=== PATIENT | female | born 1950 | race Caucasian/White ===

== ENCOUNTER 2020-06-19 17:36 | Inpatient (IN) | payer MEDICARE ==
[~2020-06-19] VITALS: Ht 162.6 cm; Wt 72.1 kg
--- NOTE | 2020-06-19 17:55 | NUR ---
BIB RA 87 FROM HOME, NEIGHBOR CALLED 911 WHEN SHE FAILED TO OPEN THE DOOR FOR HER. PATIENT A/OX3, BREATHING EVEN AND UNLABORED, PATIENT C/O WEAKNESS. NO DISTRESS NOTED. NEEDS ATTENDED.
[2020-06-19 17:57] LABS: BASOPHILS # (AUTO) 0.1 /CMM (0.0-0.2); BASOPHILS % (AUTO) 0.3 % (0.0-2.0); HEMATOCRIT 44 % (33-45); HEMOGLOBIN 14.8 g/dL (11.5-14.8); LYMPHOCYTES # (AUTO) 0.4 /CMM (0.8-4.8); LYMPHOCYTES % (AUTO) 1.4 % (20.0-44.0); MEAN CORPUSCULAR HGB CONC 33 g/dl (31.0-36.0); MEAN CORPUSCULAR VOLUME 85 fL (82-100); MONOCYTES # (AUTO) 0.5 /CMM (0.1-1.30); NEUTROPHILS # (AUTO) 25.3 /CMM (1.8-8.9); NEUTROPHILS % (AUTO) 94.3 % (43.0-81.0); PLATELET COUNT (AUTO) 83 /CMM (150-450); RED BLOOD CELL COUNT(AUTO) 5.23 MIL/uL (4.0-5.2); WHITE BLOOD COUNT (AUTO) 26.8 K/uL (4.3-11.0)
[2020-06-19] MEDS ORDERED: IV NS 0.9% 1,000 ML IV ONE ×2 (18:00→19:00)
[2020-06-19 18:18] LABS: BILIRUBIN,URINE Negative (NEGATIVE); COLOR,URINE YELLOW (YELLOW); LEUKOCYTE ESTERASE ,URINE Negative (NEGATIVE); NITRITE, URINE Negative (NEGATIVE); PROTEIN,URINE Trace mg/dl (NEGATIVE); UGLUCOSE Negative (NEGATIVE)
[2020-06-19] MEDS ORDERED: PIPERACILLIN /TAZOBACTAM 3.375 G in IV D5W 50 ML IV ONE (18:30)
[2020-06-19] MEDS ORDERED: VANCOMYCIN 1 GM in IV D5W 250 ML IV ONE (18:30)
[2020-06-19 18:32] LABS: CALCIUM, SERUM 9.5 mg/dL (8.5-10.1); CARBON DIOXIDE 16 mmol/L (21-32); CHLORIDE 87 mmol/L (98-107); CREATININE 1.6 mg/dL (0.6-1.3); GLUCOSE 95 mg/dL (74-106); POTASSIUM 3.3 mmol/L (3.5-5.1); SODIUM SERUM 125 mmol/L (136-145); UREA NITROGEN, BLOOD 35 mg/dL (7-18)
[2020-06-19 18:45] LABS: B-TYPE NATRIURETIC PEPTIDE 5688 PG/ML (0-125)
[2020-06-19 18:53] LABS: BACTERIA,URINE Few /HPF (None Seen); SQUAMOUS EPITHELIAL CELL,UR Few /HPF (None Seen); URINE AMORPHOUS URATE Few /HPF (None Seen); WBC,URINE 0-2 /HPF (0-3)
[2020-06-19] MEDS ORDERED: ACETAMINOPHEN 325 MG TABLET ONE (18:55)
--- NOTE | 2020-06-19 18:56 | NUR ---
LAB CALLED LACTIC ACID 3.5 MD AWARE.
[2020-06-19] MEDS ORDERED: ACETAMINOPHEN 325 MG TABLET PO ONE (19:00)
[2020-06-19] MEDS ORDERED: IOHEXOL-300 100 ML VIAL IV ONE (19:09)
[2020-06-19] MEDS ORDERED: CT SWABBABLE VALVE TRANS SET 1 EA INFUS.SET MC ONE (19:09)
[2020-06-19] MEDS ORDERED: IV NS 0.9% 250 ML IV ONE (19:09)
[2020-06-19 19:21] LABS: BILIRUBIN,DIRECT 2.5 mg/dL (0.0-0.2); BILIRUBIN,TOTAL 3.8 mg/dL (0.2-1.0); TOTAL PROTEIN, SERUM 6.2 g/dL (6.4-8.2)
--- NOTE | 2020-06-19 19:27 | NUR ---
BROUGHT TO CT
--- NOTE | 2020-06-19 19:27 | NUR ---
YOUSIFID SWABBED, SENT TO LAB.
[2020-06-19 19:28] LABS: BAND % (MANUAL) 15 % (0.0-5.0); LYMPHOCYTES % (MANUAL) 2 % (16-48); METAMYELOCYTES % 1 % (0-0); MONOCYTES % (MANUAL) 4 % (0-11.0); NEUTROPHILS % (MANUAL) 78 (42-76)
[2020-06-19 20:18] LABS: THYROID STIMULATING HORMONE 1.554 uIU/mL (0.358-3.74)
--- NOTE | 2020-06-19 21:00 | NUR ---
CHELI NAVARRO TALKING TO DR. CARDOSO REGARDING PT ADMISSION.
--- NOTE | 2020-06-19 21:06 | NUR ---
TELE BED 322-0
[2020-06-19] MEDS ORDERED: Z GUARD REMEDY 2 OZ OINT TP PRN (21:30)
[2020-06-19] MEDS ORDERED: ACETAMINOPHEN 325 MG TABLET PO PRN (21:30)
[2020-06-19] MEDS ORDERED: MAG HYDROX/AL HYDROX/SIMETH 30 ML UDC PO PRN (21:30)
[2020-06-19] MEDS ORDERED: ONDANSETRON HCL/PF 4 MG/2 ML VIAL IVP PRN (21:30)
[2020-06-19] MEDS ORDERED: ZOLPIDEM TARTRATE 5 MG TABLET PO PRN (21:30)
[2020-06-19] MEDS ORDERED: MAGNESIUM HYDROXIDE 30 ML UDC PO PRN (21:30)
[2020-06-19] MEDS ORDERED: HYDROCODONE/APAP 5/325MG TABLET PO PRN (21:30)
--- NOTE | 2020-06-19 21:35 | NUR ---
REPORT GIVEN TO ARNOLD SOTELO FOR SUELLEN
[2020-06-19 21:45] VITALS: BP 101/58
[2020-06-19 21:45] LABS: BILIRUBIN,DIRECT 2.2 mg/dL (0.0-0.2); BILIRUBIN,TOTAL 3.4 mg/dL (0.2-1.0)
--- NOTE | 2020-06-19 21:51 | NUR ---
PT TRANSFERED PER ACLS PROTOCOL
[2020-06-19] MEDS ORDERED: POTASSIUM CHLORIDE 10 MEQ TABLET.SA PO ONE (23:30)
[2020-06-19] MEDS ORDERED: PIPERACILLIN /TAZOBACTAM 3.375 G VIAL IV ONE (23:46)
[2020-06-20] VITALS: BP 101/48
[2020-06-20] MEDS ORDERED: PIPERACILLIN /TAZOBACTAM 3.375 G in IV D5W 50 ML IV SCH
--- NOTE | 2020-06-20 | NUR ---
TELE/RN OPENING NOTES RECEIVED PATIENT FROM ED RN LEX AT 2200HRS. PATIENT TRANSFERRED FROM ED WITH NO INJURIES SUSTAINED. PATIENT TRANSFERRED TO BED SAFELY. PATIENT IS ALERT AND ORIENTED X 3, WITH EPISODES OF CONFUSION, FORGETFUL, PATIENT IS A POOR HISTORIAN. PATIENT VITAL SIGNS ARE STABLE. PATIENT BREATHING IS EVEN AND UNLABORED. PATIENT IN NO SIGNS OF SOB OR RESPIRATORY DISTRESS NOTED. PATIENT SKIN IS INTACT. PATIENT RIGHT AC 20G INTACT FLUSHING WELL. SAFETY MEASURES ARE IN PLACE, BED IS LOCKED AND PLACED IN THE LOW POSITION, SIDE RAILS X 3, CALL LIGHT IS WITHIN REACH. WILL CONTINUE WITH PATIENT PLAN OF CARE.
[2020-06-20] MEDS: PIPERACILLIN /TAZOBACTAM 3.375 G in IV D5W 50 ML IV SCH ×2 (00:57→06:31)
[2020-06-20] MEDS ORDERED: IV NS 0.9% 1,000 ML IV ONE (01:00)
[2020-06-20 04:00] VITALS: BP 113/59
[2020-06-20 05:51] LABS: BASOPHILS # (AUTO) 0.1 /CMM (0.0-0.2); BASOPHILS % (AUTO) 0.2 % (0.0-2.0); EOSINOPHILS % (AUTO) 1.6 % (0.0-6.0); HEMATOCRIT 39 % (33-45); HEMOGLOBIN 12.8 g/dL (11.5-14.8); LYMPHOCYTES # (AUTO) 0.2 /CMM (0.8-4.8); LYMPHOCYTES % (AUTO) 0.7 % (20.0-44.0); MEAN CORPUSCULAR HGB CONC 33 g/dl (31.0-36.0); MEAN CORPUSCULAR VOLUME 84 fL (82-100); MONOCYTES # (AUTO) 3.7 /CMM (0.1-1.30); MONOCYTES % (AUTO) 10.7 % (2.0-12.0); NEUTROPHILS # (AUTO) 30.3 /CMM (1.8-8.9); NEUTROPHILS % (AUTO) 86.8 % (43.0-81.0); PLATELET COUNT (AUTO) 72 /CMM (150-450); RED BLOOD CELL COUNT(AUTO) 4.65 MIL/uL (4.0-5.2)
[2020-06-20] MEDS ORDERED: PIPERACILLIN /TAZOBACTAM 3.375 G VIAL IV ONE (06:28)
[2020-06-20 06:30] LABS: WHITE BLOOD COUNT (AUTO) 34.9 K/uL (4.3-11.0)
[2020-06-20 06:33] LABS: CALCIUM, SERUM 8.7 mg/dL (8.5-10.1); CREATININE 2.3 mg/dL (0.6-1.3); POTASSIUM 3.4 mmol/L (3.5-5.1)
--- NOTE | 2020-06-20 06:40 | NUR ---
TELE/RN NOTES LAB RESULTS: BLOOD CX: GRAM (+) COCCI CHAINS WBC: 34.9 LYNETTE MD SCHEDULE MAKER NOTIFIED/PAGED AWAITING NEW ORDERS/ CALL BACK.
--- NOTE | 2020-06-20 06:50 | NUR ---
TELE/RN CLOSING NOTES PATIENT IN BED SLEEPING EASY TO AROUSE. PATIENT IS ALERT AND ORIENTED X 2-3, PERIODS OF CONFUSION AND FORGETFUL. PATIENTS BREATHING IS EVEN AND UNLABORED. NO SIGNS ON SOB OR RESPIRATORY NOTED. PATIENT IN NO SIGNS OF DISTRESS. ALL NEEDS HAVE BEEN MET DURING SHIFT. SAFETY MEASURES ARE IN PLACE, BED IS LOCKED AND PLACED IN THE LOW POSITION, CALL LIGHT IS WITHIN REACH. WILL ENDORSE CARE TO DAY SHIFT NURSE.
--- NOTE | 2020-06-20 07:30 | NUR ---
BURGLAR ALARM INSTALLER OPENING NOTE PATIENT RESTING IN BED WITH EYES CLOSED. NO S/S OF RESPIRATORY DISTRESS BREATHING EVEN AND UNLABORED. PATIENT TOLERATING O2 NC 3LPM. NO COMPLAINS OF ANY PAIN/ DISCOMFORT AT THIS TIME. SAFETY PRECAUTIONS IN PLACE: BED IN LOCKED AND LOWEST POSITION, CALL LIGHT WITHIN REACH. SIDE RAILS UP. WILL MONITOR PATIENT CLOSELY.
[2020-06-20 08:00] VITALS: BP 91/56
[2020-06-20 08:54] LABS: BAND % (MANUAL) 5 % (0.0-5.0); LYMPHOCYTES % (MANUAL) 4 % (16-48); MONOCYTES % (MANUAL) 5 % (0-11.0); NEUTROPHILS % (MANUAL) 86 (42-76)
--- NOTE | 2020-06-20 09:00 | NUR ---
MS/RN Medications All medications administered as ordered.
[2020-06-20] MEDS ORDERED: POTASSIUM CHLORIDE 10 MEQ TABLET.SA PO ONE (09:30)
--- NOTE | 2020-06-20 11:00 | NUR ---
MS/RN S/B Dr Ferreira DNP Seen by DNP - continue with gentle hydration and current IVAB (zosyn and vanco). Consults ordered with the followin: -Dr Caldwell -Dr Roberts -Dr Beebe -Dr Kenny. All contacted by DNP.
[2020-06-20] MEDS ORDERED: ZOSYN IVPB 2.25 G in IV D5W 50ml IV SCH (12:00)
--- NOTE | 2020-06-20 12:00 | NUR ---
MS/RN IVAB IVAB administered as ordered, no reaction noted.
--- NOTE | 2020-06-20 13:15 | NUR ---
MS/RN Nephrology Seen by Dr Beebe's SPECIAL EDUCATION ASSOCIATE - labs ordered.
--- NOTE | 2020-06-20 15:07 | NUR ---
SS Consult: SS Consult requested for possible APS report and safe discharge planning. The pt. is a 69-year old female who was BIBRA from home after being found on the floor of her apartment by a neighbor. SW met with pt. bedside. pt. is alert & oriented in all spheres. Pt. appears unkempt, makes appropriate eye contact. Pt. is very weak, with slow low speech and takes breaks in between words. Pt. asked to put her head down various times during conversation due to exhaustion. Pt. The pt. stated that she fell on 06/19/2020 and could not get up. Pt. stated she has become increasingly weak over the last month. Patient stated that she put herself on a very strict diet and lost 50 lbs. over the past 18 weeks and believes it may have been a contributing factor. Patient stated she did not seek medical treatment when she began feeling weak because I could still take care of myself, I was just moving very slowly. Per patient, after being found on the floor by neighbor, Medina Márquez, they called pt.s boyfriend, Samir Garland [phone]. Per patient, she waited a while before calling EMT hoping she would feel better. However, she was unable to walk so they then called EMT and was brought to the hospital. SW discussed case with charge nurse, Sydnee and embedded case manager, Jojo. Per embedded case manager pt. will probably need long term upon discharge and they will work on SNF placement. SW discussed possible SNF placement for long term and continued rehabilitation with the patient. SW explained to pt. that SNF placement would be temporary until pt. is strong enough to go home and be independent with ADLs. However, pt. is hesitant. Pt. stated, I want to go home. My boyfriend and neighbors can come and check up on me. Pt. stated she lives alone at [[address] [address]] has no children or other family that can care for her. SW validated her feelings of sadness due to loss of health/ independence etc. and explained to pt. that she currently requires help with ADLs and SW will continue to collaborate with IDT to ensure safe and appropriate discharge planning. Patient expressed understanding and stated that she will think about it. SW will follow up as needed. Plan: SW will follow up and make APS report for Self Neglect.JAYLEEN will meet with pt. and continue to discuss safe discharge plan with possible SNF placement. JAYLEEN provided pt. with the following Senior resources and pt. accepted them: ABUSE PREVENTION: ELDER ABUSE HOTLINE (05/10) ADULT PROTECTIVE SERVICES HOTLINE LONG-TERM CARE [facility] AREA ON AGING (HOTLINE) ADULT DAY HEALTH CARE CARE CENTERS: Private pay or [facility] funded adult day care [facility] Day [facility] Care [facility] , [facility] , [facility] , [facility] Day Health Care , [facility] Adult Day Health [facility], [place] , [facility] Adult Daycare Center , [place] ONE Generation [place] , [facility] , [place] ALZHEIMERS DISEASE/DEMENTIA: Alzheimers Association Helpline [facility] www.alz.org/[facility] Department of Aging www.lacity.org Family Caregiver [place] www.caregiver.org [place] Caregiver Resources Center/Family Support www.losangelesscrc.org COMMUNITY HEALTH ASSOCIATIONS: AARP www.aarp.org ALS Association (ask for Sandra) www.als.org Bulgarian Diabetes Association www.diabetes.org Bulgarian Heart Association www.heart.org Bulgarian Lung Association www.lungusa.org Bulgarian Parkinson Disease Association www.apdaparkinson.org Bulgarian [place] , www.redcross.org Arthritis Foundation www.arthritis.org Crohns & Colitis Foundation of Bulgarian www.ccfa.org/chapters/chiara National Multiple Sclerosis Society www.nationalmssociety.org Myasthenia Gravis Foundation www.myasthenia-ca.org National Stroke Association www.stroke.org CONSERVATORSHIP & GUARDIANSHIP: AARP Bet Tzedek Legal Services Center for Health Care Rights Eldercare Information and Referral Shaper Hand [facility]: [facility] Referral Service [facility] Legal Services Office of the Public Guardian [place] GRIEF AND BEREAVEMENT RESOURCES: The [place]athering Place , [facility] THE HOPE Connection , [facility] Bereavement Center , [place] HEARING DISORDER RESOURCES: [place] Telephone Access Program Deaf and Disabled Telecommunications Program www.ddtp.cpu.ca.gov HearRx Hearing Centers ([place]) Better Hearing Systems , [place] GLAD ([facility] Agency on Deafness) V/ TTY; Certified Nuclear Medicine Technologist , [facility] Hearing [facility] -low income hearing aid assistance www.Vibrado Technologieshearingfoundation.org [place] [facility] Sabrina HELP AT HOME CAREGIVER SUPPORT: In Home Support Services (Must have Medi-Kristofer to be eligible) *Ask for a list of agencies that provide services to assist with care in the home. Local Senior Centers also have listings of care providers. HOME SAFETY MODIFICATIONS AND EQUIPMENT: Senior centers have additional referrals. [place] Grockit and Actual Experience Investment Dept. Handyworker Program (low income) or Visit http://hcidla.[facility].org/vkd-isogay-kk for more information National Seating and Mobility and/or ; Forever Active www.foreverKitemed.Fyusion Stay Home Safe www.Stayhomesafe.com LIFE ALERT RESPONSE SYSTEM: Tarana Wireless Services 147-128-9563 www. MyPrintCloud Life Alert 294-927-6516 www.IMN Life Station 985-928-4983 www.Wizzgoation.Fyusion Safe Return 608-474-9239 www.alz.or/safereturn Cell Phones for Seniors www.BitLeap MEALS AND FOOD PROGRAMS: [place] Meals on Wheels [phone] [place] Meals on Wheels 922-398-7638 [facility] 778-800-3779 [place] to the Homebound 630-489-6077 [place] to the Homebound [phone] [facility] to the Homebound 732-493-8924 [facility] to the Homebound [phone] Luis Carlos Solorzano [phone] [facility] 475-877-9127 ONE Generation [phone] [facility] [phone] [facility] [phone] Meals on Wheels [phone] For all ages: $6.85/ meal w side. Delivered M-F from 10 am-1pm. Application and payment is done over the phone. Frozen meals available for weekends. Emergency Food [facility] [phone] [facility] Group Work Program Aide [phone] [facility] [phone] Papito James Outreach- Brown bag lunches [phone] [facility] [phone] MEAL/GROCERY DELIVERY PROGRAMS: Amalia Warren Gourmet Meals [phone]- [facility] [phone]- [facility] Magic Kitchen [phone] Moms Meals [phone] (ask Ag for Discount Select grocery stores may provide delivery. MEDICAL INSURANCE SUPPORT SERVICES: Center for Health Care Rights [phone] Health Insurance Counseling/Advocacy Programs (HICAP)-Must have Medicare. Offers counseling for Medi-Kristofer eligibility [phone] [facility] Public Group Work Program Aide 065-830-4469 www.primary children's hospital.ca.gov Medicare 798-360-2313 www.socialsecurity.org Social Security 133-418-8557 SENIOR ACTIVITY PROGRAMS: *Contact a local senior center, adult school, recreation facility or community college for education, fitness, recreation, and social programs. Aquatic Therapy and Adapted Exercise programs through [facility] [phone] [facility]core at [facility] [phone] www.[facility]/encore U- Senior Friends [phone] [place] Senior Programs 371-678-7917 www.oasisnet.org Suddenly 65 www..com SENIOR CENTERS: [facility] [phone] [facility] [phone] [facility] [phone] [facility] [phone] [facility] [phone] [facility] [phone] [facility] [phone] [facility] [phone] One Generation, [facility] [phone] [facility] [phone] [facility] [phone] [facility] [phone] [facility] [phone] TRANSPORTATION: Local [facility] may have applications for transportation programs and additional resources. ACCESS Services [phone] Transportation for seniors and disabled persons 7 days a week requiring 254 hr. advance reservation. Must apply and register for program katie eligible. Black[employer] Power [phone] or [phone] Transportation for seniors and persons with ADA card/metro disabled card in the [facility]. M-F only. Must register for services. ONE GENERATION [phone] Serves 65 years + in conjunction with Virtway program. Must be registered with both programs. A to B Transport [phone] Provides wheelchair/gurney van service. Adult Medical Transport [phone] Accepts Medi-kristofer with prior authorization. Care Van [phone] Provides wheelchair Transport. [facility] Wide Transportation [phone] Provides gurney service [facility] [phone] Gurney Transport. [facility] Transportation [phone] wheelchair & gurney transport [facility] Transportation [phone] wheelchair & gurney transport [place] Non-Emergency Transport [phone] wheelchair & gurney transport [facility] Living [place] [phone] Short Term Transportation primarily for adults with disabilities on social security income. Nominal fee may apply and a reservation is required. [facility] Cab [phone] or [phone] [place] ProgrammerMeetDesigner.com [phone] [place] [address] Referral Services -[phone] For additional programs & services
[2020-06-20 16:03] VITALS: BP 96/58
--- NOTE | 2020-06-20 16:05 | NUR ---
APS Report SW completed online APS report Intake #[id number] for Self-Neglect. SW printed APS report confirmation email and placed it in the patient's chart. SW will be available as needed.
[2020-06-20] MEDS ORDERED: CEFEPIME 1 GM in IV D5W 50 ML IV SCH (16:30)
[2020-06-20] MEDS: CEFEPIME 2 GM in IV D5W 100 ML IV SCH ×2 (17:13→17:21)
--- NOTE | 2020-06-20 18:26 | NUR ---
MS/RN Santamaria insertion Santamaria catheter inserted at the order of Dr Ferreira as patient has not voided this shift. Bladder scanner shows residual of <150ml. 16G santamaria inserted, urine collected and sent to lab for sodium clearance.
--- NOTE | 2020-06-20 18:40 | NUR ---
MS/RN End note Bernal catheter draining small volume of cloudy concentrated urine. Patient noted with redness to left elbow and redness on chantel area, pictures taken and wound care consult ordered. Skin kept clean and dry, z-guard applied to chantel area, elbows placed on pillows. Will endorse to hotel night auditor.
--- NOTE | 2020-06-20 19:07 | NUR ---
TELE/RN CLOSING NOTES PATIENT IN BED SLEEPING EASY TO AROUSE. PATIENT IS ALERT AND ORIENTED X 2-3. PATIENT TOLERATING O2 NC 3LPM. NO SIGNS ON SOB OR RESPIRATORY NOTED. PATIENT IN NO SIGNS OF DISTRESS. ALL NEEDS ATTENDED DURING SHIFT. ALL SCHEDULED MEDS GIVEN. SAFETY MEASURES ARE IN PLACE, BED IS LOCKED AND PLACED IN THE LOW POSITION, CALL LIGHT IS WITHIN REACH. PICTURES TAKEN. WILL ENDORSE CARE TO CONSERVATION ENFORCEMENT OFFICER NURSE.
--- NOTE | 2020-06-20 19:30 | NUR ---
MS/RN OPENING NOTES RECEIVED PATIENT IN BED RESTING. PATIENT IS ALERT AND ORIENTED X 2-3. PATIENTS BREATHING IS EVEN AND UNLABORED. NO SIGNS ON SOB OR RESPIRATORY NOTED PT ON 2 L NC. PATIENT IN NO SIGNS OF DISTRESS. WATSON CATH IS IN PLACE. SAFETY MEASURES ARE IN PLACE, BED IS LOCKED AND PLACED IN THE LOW POSITION, SIDE RAILS UP X 3, CALL LIGHT IS WITHIN REACH. WILL CONTINUE WITH PATIENT PLAN OF CARE.
[2020-06-20] MEDS: VANCOMYCIN 500 MG in IV D5W 100 ML IV SCH (19:58)
[2020-06-20 20:53] VITALS: BP 110/65
--- NOTE | 2020-06-21 06:19 | NUR ---
MS/RN CLOSING NOTES PATIENT IN BED SLEEPING EASY TO AROUSE. PATIENT IS ALERT AND ORIENTED X 2-3. PATIENTS BREATHING IS EVEN AND UNLABORED. NO SIGNS ON SOB OR RESPIRATORY NOTED PT ON 2 L NC. PATIENT IN NO SIGNS OF DISTRESS. WATSON CATH IS IN PLACE DRAINED 55cc URINE. PATIENT R AC IV INTACT RUNNING NS AT 75 cc/ HR. ALL NEEDS MET. SAFETY MEASURES ARE IN PLACE, BED IS LOCKED AND PLACED IN THE LOW POSITION, SIDE RAILS UP X 3, CALL LIGHT IS WITHIN REACH. WILL ENDORSE TO DAY SHIFT NURSE.
[2020-06-21 06:30] LABS: BASOPHILS # (AUTO) 0.2 /CMM (0.0-0.2); BASOPHILS % (AUTO) 0.5 % (0.0-2.0); EOSINOPHILS % (AUTO) 0.5 % (0.0-6.0); HEMATOCRIT 36 % (33-45); LYMPHOCYTES # (AUTO) 0.8 /CMM (0.8-4.8); LYMPHOCYTES % (AUTO) 1.9 % (20.0-44.0); MEAN CORPUSCULAR HGB CONC 33 g/dl (31.0-36.0); MEAN CORPUSCULAR VOLUME 83 fL (82-100); NEUTROPHILS # (AUTO) 34.6 /CMM (1.8-8.9); NEUTROPHILS % (AUTO) 77.1 % (43.0-81.0); PLATELET COUNT (AUTO) 116 /CMM (150-450); RED BLOOD CELL COUNT(AUTO) 4.38 MIL/uL (4.0-5.2)
[2020-06-21 06:46] LABS: WHITE BLOOD COUNT (AUTO) 44.9 K/uL (4.3-11.0)
[2020-06-21 06:53] LABS: CALCIUM, SERUM 8.7 mg/dL (8.5-10.1); CREATININE 3.5 mg/dL (0.6-1.3); MAGNESIUM 2.2 mg/dL (1.8-2.4); PHOSPHORUS 3.6 mg/dL (2.5-4.9); POTASSIUM 3.7 mmol/L (3.5-5.1); TOTAL PROTEIN, SERUM 5.7 g/dL (6.4-8.2)
--- NOTE | 2020-06-21 06:54 | NUR ---
LAB RESULT MS/RN NOTES WBC: 44.9 WILL ENDORSE TO DAY SHIFT NURSE.
[2020-06-21 07:01] LABS: THYROID STIMULATING HORMONE 0.64 uIU/mL (0.358-3.74); URIC ACID 7.5 mg/dL (2.6-7.2)
[2020-06-21 07:04] LABS: ALBUMIN 1.4 g/dL (3.4-5.0)
[2020-06-21 08:00] VITALS: BP 113/67
--- NOTE | 2020-06-21 08:00 | NUR ---
RN OPENING NOTE PATIENT AWAKE IN BED. A/O X3 AND KOSOVAN SPEAKING. NO COMPLAINT OF PAIN OR NAUSEA. CURRENTLY ON 3L NC WITH NO SOB OR RESPIRATORY DISTRESS PRESENT. NO EDEMA. SOME DISTENSION PRESENT ON ABDOMEN. REDNESS PRESENT ON SACRAL AREA AND LATERAL THIGH. F/C PRESENT. HL PRESENT ON R AC 20G. SAFETY MEASURES IN PLACE. SIDE RAILS RAISED. BED LOWERED. CALL LIGHT WITHIN REACH. WILL CONTINUE TO MONITOR.
[2020-06-21 09:06] LABS: LYMPHOCYTES % (MANUAL) 3 % (16-48); MONOCYTES % (MANUAL) 18 % (0-11.0); NEUTROPHILS % (MANUAL) 79 (42-76)
--- NOTE | 2020-06-21 10:02 | NUR ---
WOUND CARE CONSULT: PT PRESENTS WITH BLANCHABLE REDNESS TO RT ELBOW AND INTACT DEEP TISSUE INJURY TO LEFT LATERAL THIGH, PRESENT ON ADMISSION. PT TO BE PLACED ON LONNY ISOFLEX LOW AIRLOSS BED. RECOMMENDATIONS MADE FOR SKIN PROTECTION. DISCUSSED WITH NURSING STAFF. IN AGREEMENT WITH PLAN OF CARE. Addendum: 06/21/20 at 1004 by PATTI JARRETT WNDNU Amended: Links added.
[2020-06-21 12:46] LABS: ABG BASE EXCESS -6.6 mmol/L; ABG OXYGEN SATURATION 96.2 % (92.0-98.5); ABG PCO2 26.5 mmHg (35.0-45.0); ABG PH 7.412 (7.350-7.450); ABG PO2 79.8 mmHg (75.0-100.0); AaDO2 117.4 mmHg; COHb 0.3 % (0.5-1.5); MetHb 0.2 % (0.0-1.5); O2Hb 95.7 % (94.0-97.0); SITE, ABG Right Radial; VENT MODE, BG 3L NC
[2020-06-21] MEDS: AZITHROMYCIN 250 MG TABLET PO SCH (13:11)
[2020-06-21] MEDS: METRONIDAZOLE 500MG/ NS 100ML 500 MG in PREMIX 1 EA IV SCH ×2 (13:59→21:30)
--- NOTE | 2020-06-21 15:05 | NUR ---
Extrusion Line Operator note: Extrusion Line Operator followed up to discuss options for discharge with the patient. Patient is a 69-year-old, white female who was brought into the hospital for sepsis. SW met the patient in her hospital room, on the med-surg unit. Patient is alert and oriented x4. SW discussed options with the patient and asked if she would like to go to a SNF. Patient stated she does not want to go to a SNF. Patient stated "my boyfriend will be moving in and taking care of me." Patient stated her boyfriend is Samir Garland [phone]. Patient stated she plans to return to prior living arrangements at home ([address], [place] [address]; [phone]). SW will continue to remain available to the patient, as needed to ensure a safe discharge.
[2020-06-21 16:00] VITALS: BP 110/74
[2020-06-21] MEDS: CEFEPIME 2 GM in IV D5W 100 ML IV SCH (16:12)
--- NOTE | 2020-06-21 18:04 | NUR ---
RN CLOSING NOTE PATIENT AWAKE IN BED. A/O X3 AND MALTESE SPEAKING. NO COMPLAINT OF PAIN OR NAUSEA. CURRENTLY ON 3L NC WITH NO SOB OR RESPIRATORY DISTRESS PRESENT. NO EDEMA. SOME DISTENSION PRESENT ON ABDOMEN. REDNESS PRESENT ON SACRAL AREA AND LATERAL THIGH. F/C PRESENT. HL PRESENT ON R AC 20G. ROUTINE MEDS GIVEN. SAFETY MEASURES IN PLACE. SIDE RAILS RAISED. BED LOWERED. CALL LIGHT WITHIN REACH. REPORT TO BE GIVEN TO NIGHT NURSE FOR SUELLEN.
[2020-06-21] MEDS: IV NS 0.9% 1,000 ML IV PRN (19:42)
[2020-06-21 20:00] VITALS: BP 125/76
[2020-06-21] MEDS: VANCOMYCIN 500 MG in IV D5W 100 ML IV SCH (20:22)
--- NOTE | 2020-06-21 20:42 | NUR ---
RN NOTES RECEIVED PATIENT IN BED, ALERT AND ORIENTED X2, ROOM AIR, NOT IN APPARENT PAIN, TEARFUL, ANXIOUS, VERBALIZING "I WANT TO BE ALONE." WATSON CATHETER DRAINING, RIGHT ARM WITH PERIPHERAL IV HAS REDNESS, STARTED NEW IV LINE. REPOSITIONED FOR COMFORT.
[2020-06-22] MEDS: METRONIDAZOLE 500MG/ NS 100ML 500 MG in PREMIX 1 EA IV SCH ×3 (05:06→21:03)
[2020-06-22 05:07] LABS: PTH, INTACT 50 pg/mL (15-65)
--- NOTE | 2020-06-22 06:24 | NUR ---
RN NOTES ALERT/ORIENTED X3, ROOM AIR, TEARFUL, ANXIOUS, PAIN DURING REPOSITIONING, WATSON CATHETER FOR STRICT I&O, ELEVATED BUN/CREATININE, DECREASED URINE OUTPUT, NS AT 100 ML/HR, WBC TRENDING UP, ONCOLOGY CONSULT, CONTINUE IV ABX
[2020-06-22 06:54] LABS: BASOPHILS # (AUTO) 0.2 /CMM (0.0-0.2); BASOPHILS % (AUTO) 0.6 % (0.0-2.0); EOSINOPHILS % (AUTO) 0.3 % (0.0-6.0); HEMATOCRIT 33 % (33-45); HEMOGLOBIN 10.9 g/dL (11.5-14.8); LYMPHOCYTES # (AUTO) 0.9 /CMM (0.8-4.8); LYMPHOCYTES % (AUTO) 2.6 % (20.0-44.0); MEAN CORPUSCULAR HGB CONC 33 g/dl (31.0-36.0); MEAN CORPUSCULAR VOLUME 83 fL (82-100); NEUTROPHILS # (AUTO) 30.8 /CMM (1.8-8.9); NEUTROPHILS % (AUTO) 90.5 % (43.0-81.0); PLATELET COUNT (AUTO) 143 /CMM (150-450); RED BLOOD CELL COUNT(AUTO) 3.94 MIL/uL (4.0-5.2)
[2020-06-22 07:19] LABS: CALCIUM, SERUM 7.8 mg/dL (8.5-10.1); CREATININE 4.5 mg/dL (0.6-1.3); POTASSIUM 3.9 mmol/L (3.5-5.1)
--- NOTE | 2020-06-22 07:30 | NUR ---
RN MS NOTES PT IN BED, AWAKE, ALERT AND VERBALLY RESPONSIVE, NO COMPLAINT OF PAIN, BREATHING PATTERN NORMAL, CALL LIGHT WITHIN REACH, IV FLUIDS INFUSING WELL, ASSISTED WITH BREAKFAST, KEPT COMFORTABLE.
[2020-06-22 08:00] VITALS: BP 142/90
[2020-06-22 08:49] LABS: LYMPHOCYTES % (MANUAL) 2 % (16-48); MONOCYTES % (MANUAL) 6 % (0-11.0); NEUTROPHILS % (MANUAL) 92 (42-76)
--- NOTE | 2020-06-22 09:18 | NUR ---
RN MS NOTES PT IN BED, AWAKE, ALERT AND ORIENTED, ASSISTED WITH BREAKFAST, SEEN AND EXAMINED BY DR. VASQUEZ, INFORMED OF ABNORMAL LABS.
[2020-06-22] MEDS ORDERED: FUROSEMIDE 40 MG/4 ML VIAL IV ONE (11:00)
[2020-06-22 11:32] LABS: ABG BASE EXCESS -8.1 mmol/L; ABG OXYGEN SATURATION 95.5 % (92.0-98.5); ABG PCO2 25.4 mmHg (35.0-45.0); ABG PH 7.394 (7.350-7.450); ABG PO2 74.4 mmHg (75.0-100.0); AaDO2 44.9 mmHg; COHb 0.6 % (0.5-1.5); MetHb 0.1 % (0.0-1.5); O2Hb 94.8 % (94.0-97.0); SITE, ABG Right Radial; VENT MODE, BG ROOM AIR
[2020-06-22] MEDS: AZITHROMYCIN 250 MG TABLET PO SCH (12:34)
[2020-06-22] MEDS ORDERED: DIATR MEGLU/DIATRIZOATE SODIUM 30 ML BOTTLE (GASTROGRAPHIN) ONE (13:52)
[2020-06-22 16:07] VITALS: BP 152/96
[2020-06-22] MEDS: CEFEPIME 1 GM in IV D5W 50 ML IV SCH (17:17)
[2020-06-22] MEDS: IV NS 0.9% 1,000 ML IV PRN (17:18)
--- NOTE | 2020-06-22 18:44 | NUR ---
RN MS NOTES PT IN BED, ASLEEP, EASY TO AROUSE, ALERT AND ORIENTED, NO COMPLAINT OF PAIN, RESPIRATIONS NORMAL, PT WITH DECREASED URINE OUTPUT, DR. CAMPBELL AWARE, PT COMPLETED CT SCAN OF ABD AND PELVIS WITH ORAL CONTRAST, ASSISTED WITH DINNER, IV FLUIDS INFUSING WELL, PM CARE PROVIDED, PT REFUSES TO BE REPOSITIONED AT TIMES, KEPT WARM AND COMFORTABLE IN BED.
--- NOTE | 2020-06-22 19:30 | NUR ---
MS RN OPENING NOTE PATIENT A/OX2; ABLE TO MAKE NEEDS KNOWN. ON ROOM AIR AND TOLERATING WELL WITH NO SOB. DENIES PAIN OR DISCOMFORT AT THIS TIME. F/C DRAINING YELLOW URINE; PATENT AND INTACT. LFA #22G INFUSING NS @40ML/HR; PATENT AND INTACT. SAFETY MEASURES IN PLACE: BED IN LOWEST LOCKED POSITION, SIDE RAILS UPZ X2, CALL LIGHT WITHIN EASY REACH, BED ALARMS ON. PATIENT IS IN STABLE CONDITION; WILL CONTINUE PLAN OF CARE.
[2020-06-22 20:00] VITALS: BP 150/109
[2020-06-23] MEDS: METRONIDAZOLE 500MG/ NS 100ML 500 MG in PREMIX 1 EA IV SCH ×3 (05:11→21:49)
--- NOTE | 2020-06-23 05:42 | NUR ---
MS RN CLOSING NOTE PATIENT A/OX2; ABLE TO MAKE NEEDS KNOWN. ON ROOM AIR AND TOLERATING WELL WITH NO SOB. DENIES PAIN OR DISCOMFORT AT THIS TIME. F/C DRAINING YELLOW URINE; PATENT AND INTACT. LFA #22G INFUSING NS @40ML/HR; PATENT AND INTACT. SAFETY MEASURES IN PLACE: BED IN LOWEST LOCKED POSITION, SIDE RAILS UP X2, CALL LIGHT WITHIN EASY REACH, BED ALARMS ON. PATIENT IS IN STABLE CONDITION; WILL ENDORSE PLAN OF CARE TO ONCOMING MORNING RN.
[2020-06-23 06:34] LABS: BASOPHILS % (AUTO) 0.1 % (0.0-2.0); EOSINOPHILS % (AUTO) 0.3 % (0.0-6.0); HEMATOCRIT 34 % (33-45); HEMOGLOBIN 11.1 g/dL (11.5-14.8); LYMPHOCYTES # (AUTO) 0.3 /CMM (0.8-4.8); LYMPHOCYTES % (AUTO) 1.3 % (20.0-44.0); MEAN CORPUSCULAR HGB CONC 33 g/dl (31.0-36.0); MEAN CORPUSCULAR VOLUME 84 fL (82-100); MONOCYTES % (AUTO) 4.4 % (2.0-12.0); NEUTROPHILS # (AUTO) 20.2 /CMM (1.8-8.9); NEUTROPHILS % (AUTO) 93.9 % (43.0-81.0); PLATELET COUNT (AUTO) 129 /CMM (150-450); RED BLOOD CELL COUNT(AUTO) 4.05 MIL/uL (4.0-5.2); WHITE BLOOD COUNT (AUTO) 21.6 K/uL (4.3-11.0)
[2020-06-23 07:31] LABS: BILIRUBIN,TOTAL 1.2 mg/dL (0.2-1.0); CALCIUM, SERUM 8.1 mg/dL (8.5-10.1); CREATININE 5.1 mg/dL (0.6-1.3); MAGNESIUM 2.5 mg/dL (1.8-2.4); PHOSPHORUS 5.7 mg/dL (2.5-4.9); POTASSIUM 3.9 mmol/L (3.5-5.1)
--- NOTE | 2020-06-23 07:34 | NUR ---
MS RN NOTES PATIENT RECEIVED IN BED RESTING COMFORTABLY. ALERT AND ORIENTED X 2-3. ON ROOM AIR WITH NO SIGN OF RESPIRATORY DISTRESS AT THIS TIME WITH EVEN NON-LABORED BREATHING, AND NO SOB NOTED. PATIENT SKIN WARM AND DRY TO TOUCH. IV ACCESS INTACT AND PATENT. PATIENT DENIES ANY PAIN AT THIS TIME. SAFETY PRECAUTIONS IMPLEMENTED WITH BED LOCKED, BED ALARM ON, BILATERAL SIDE RAILS UP, BED IN THE LOWEST POSITION AND CALL LIGHT WITHIN EASY. WILL CONTINUE TO MONITOR PATIENT.
[2020-06-23 08:00] VITALS: BP 149/85
[2020-06-23] MEDS ORDERED: VANCOMYCIN 500 MG in IV D5W 100 ML IV SCH (08:00)
[2020-06-23 08:06] LABS: COMPLEMENT C3, SERUM 89 mg/dL (82-167); COMPLEMENT C4, SERUM 17 mg/dL (12-38)
[2020-06-23 08:46] LABS: ALBUMIN 1.3 g/dL (3.4-5.0)
[2020-06-23] MEDS: METOCLOPRAMIDE HCL 10 MG/10 ML UDC PO SCH ×3 (08:46→16:19)
[2020-06-23 10:20] VITALS: BP 155/91
--- NOTE | 2020-06-23 10:20 | NUR ---
TRANSFER PATIENT TO [facility] ROOM 116 PATIENT TRANSFERRED VIA ACLS PROTOCOL. REPORT GIVEN TO JENARO SOTELO. PATIENT ALERT AND ORIENTED, ON ROOM AIR NO RESPIRATORY DISTRESS NOTED. ANXIOUS AT THIS TIME DUE TO POSSIBLY STARTING DIALYSIS. PROVIDED COMFORT AND REASSURANCE TO PATIENT, INFORMED BOTH DR. CAMPBELL AND DR. HOWARD PATIENT WOULD LIKE SOME TIME TO THINK ABOUT STARTING HEMODIALYSIS. PATIENT DENIES PAIN AND CALL LIGHT AT BEDSIDE.
[2020-06-23] MEDS: VANCOMYCIN 500 MG in IV D5W 100 ML IV SCH (12:09)
[2020-06-23 13:00] VITALS: BP 161/90
[2020-06-23] MEDS: AZITHROMYCIN 250 MG TABLET PO SCH (14:17)
[2020-06-23] MEDS: CEFEPIME 1 GM in IV D5W 50 ML IV SCH (16:19)
[2020-06-23 17:00] VITALS: BP 134/85
[2020-06-23 19:02] LABS: CALCIUM, SERUM 7.5 mg/dL (8.5-10.1); CREATININE 5.3 mg/dL (0.6-1.3)
[2020-06-23] MEDS: IV NS 0.9% 1,000 ML IV PRN (19:29)
--- NOTE | 2020-06-23 19:30 | NUR ---
RN OPENING NOTES RECEIVED PATIENT IN BED, A/O X4. PT ON ROOM AIR, PT TOLERATING WELL. O2 SATURATION 100% NO S/S OF RESP DISTRESS OR SOB. BREATHING IS EVEN AND UNLABORED AT THIS TIME. PT IS ON TELE MONITORING, WITH NSR HEART RATE IS 90, PT BASELINE. PT HAS IV LEFT FOREARM #20, RUNNING WITH IV FLUIDS 0.9% NS ORDERED AT 40ML/HR. NO S/S OF INFILTRATION NOTED. PT HAS WATSON CATH DRAINING VIA GRAVITY. PT IS ANXIOUS ABOUT CARE, INFORMED PT REGARDING PLAN OF CARE. PT VERBALIZED UNDERSTANDING. ALL NEEDS ATTENDED. SAFETY MEASURES IN PLACE. HOB ELEVATED. SIDE RAILS UP X2. BED IS LOCKED IS LOWEST POSITION WITH BED ALARM ON. PT UNABLE TO USE CALL LIGHT. WILL CONTINUE TO MONITOR FOR CHANGES IN PT CONDITION MAKING FREQUENT ROUNDS, TURN AND REPOSITION Q2H.
--- NOTE | 2020-06-23 19:30 | NUR ---
PATIENT RECEIVED FROM [facility]. VITAL SIGNS TAKEN. SAFETY PRECAUTIONS IMPLEMENTED, BED LOCKED IN LOWEST POSITION, SIDE RAILS UP X2, CALL LIGHT WITHIN REACH. PATIENT CONFUSED AND UNSURE ABOUT STARTING DIALYSIS. WILL ENDORSE CONTINUATION OF CARE TO UPCOMING SHIFT.
[2020-06-23 20:00] VITALS: BP 141/88
--- NOTE | 2020-06-23 20:11 | NUR ---
RN NOTE PT IS VERBALIZING SHE WANTS TO GO THROUGH WITH DIALYSIS, ASKING WHEN IT WILL BE. CALLED DR KAUR'S OFFICE, LEFT MESSAGE WITH SHILOH TO CATHIE NAVARRO REGARDING POSSIBLE CONSENT NEEDED.
[2020-06-24] VITALS: BP 124/76
--- NOTE | 2020-06-24 01:06 | NUR ---
RN NOTE PT NOTED TO BE SLEEPING UPON ROUNDS, NO DISTRESS NOTED. WILL CONTINUE TO MONITOR FOR CHANGE IN CONDITION AND ASSESS NEEDS.
[2020-06-24 04:00] VITALS: BP 132/80
--- NOTE | 2020-06-24 04:09 | NUR ---
RN NOTE BED BATH DONE, PT REQUESTS COLD COMPRESS ON HEAD. DONE. PT ANXIOUS ABOUT WANTING TO GO HOME. EDUCATED PT ON IMPORTANCE ON HOSPITALIZATION. DISCUSSION WITH NEPHRO REGARDING HD TO BE DONE TOMORROW. ALL NEEDS ATTENDED AT THIS TIME
[2020-06-24] MEDS: METRONIDAZOLE 500MG/ NS 100ML 500 MG in PREMIX 1 EA IV SCH ×3 (05:05→21:22)
[2020-06-24 06:16] LABS: BILIRUBIN,TOTAL 1.2 mg/dL (0.2-1.0); CALCIUM, SERUM 7.6 mg/dL (8.5-10.1); CREATININE 5.5 mg/dL (0.6-1.3); MAGNESIUM 2.5 mg/dL (1.8-2.4); POTASSIUM 4.1 mmol/L (3.5-5.1); TOTAL PROTEIN, SERUM 5.9 g/dL (6.4-8.2)
[2020-06-24 06:28] LABS: ALBUMIN 1.3 g/dL (3.4-5.0)
[2020-06-24 06:41] LABS: BASOPHILS # (AUTO) 0.1 /CMM (0.0-0.2); BASOPHILS % (AUTO) 0.4 % (0.0-2.0); EOSINOPHILS % (AUTO) 0.3 % (0.0-6.0); HEMATOCRIT 34 % (33-45); HEMOGLOBIN 11.3 g/dL (11.5-14.8); LYMPHOCYTES # (AUTO) 0.6 /CMM (0.8-4.8); LYMPHOCYTES % (AUTO) 3.8 % (20.0-44.0); MEAN CORPUSCULAR HGB CONC 33 g/dl (31.0-36.0); MEAN CORPUSCULAR VOLUME 83 fL (82-100); MONOCYTES # (AUTO) 0.9 /CMM (0.1-1.30); MONOCYTES % (AUTO) 5.8 % (2.0-12.0); NEUTROPHILS # (AUTO) 14.5 /CMM (1.8-8.9); NEUTROPHILS % (AUTO) 89.7 % (43.0-81.0); PLATELET COUNT (AUTO) 147 /CMM (150-450); RED BLOOD CELL COUNT(AUTO) 4.11 MIL/uL (4.0-5.2); WHITE BLOOD COUNT (AUTO) 16.2 K/uL (4.3-11.0)
--- NOTE | 2020-06-24 06:50 | NUR ---
RN CLOSING NOTES PT REMAINS IN BED, NO SIGNIFICANT CHANGE IN CONDITION OVER NIGHT. PT STILL REMAINS ON ROOM AIR NO S/S OF RESP DISTRESS OR SOB. PT BREATHING IS EVEN AND UNLABORED. PT STILL ON TELE MONITORING PRESENTS WITH NSR WITH HEART RATE OF 86. PT BED BATH DONE, WEAKNESS NOTED ON RIGHT LEG, PT VERBALIZED THAT IS THE SIDE SHE FELL ON. PT AFEBRILE, PT DENIES PAIN. ALL NEEDS ATTENDED. SAFETY MEASURES IN PLACE. HOB ELEVATED. SIDE RAILS UP X2 BED LOCKED IN LOWEST POSITION WITH BED ALARM ON. WILL ENDORSE TO ONCOMING SHIFT FOR CONTINUATION OF CARE.
--- NOTE | 2020-06-24 07:05 | NUR ---
RN NOTES RECEIVED PT ON BED , A/Ox3, ON RA, NO SOB NOTED, ON TELE SR HR IN 80'S , WATSON DRAINING TO GRAVITY, NS AT 40CC/HR RUNNING , R WRIST IV SITE CLEAN, DRY AND INTACT, SR UP x3, CALL LIGHT WITHIN EASY REACH, BED LOCKED AND IN LOWEST POSITION, CONTINUE TO MONITOR .
[2020-06-24 08:00] VITALS: BP 134/80
[2020-06-24 08:06] LABS: *SPE A/G RATIO 0.5 (0.7-1.7); *SPE ALBUMIN 1.6 g/dL (2.9-4.4); *SPE ALPHA-1-GLOBULIN 0.5 g/dL (0.0-0.4); *SPE BETA GLOBULIN 0.8 g/dL (0.7-1.3); *SPE GLOBULIN, TOTAL 3.3 g/dL (2.2-3.9); *SPE M-SPIKE Not Observed g/dL (Not Observed); *SPEGAMMA GLOBULIN 0.9 g/dL (0.4-1.8)
[2020-06-24 08:06] LABS: CANCER AG, 125 58.1 U/mL (0.0-38.1)
[2020-06-24] MEDS: METOCLOPRAMIDE HCL 10 MG/10 ML UDC PO SCH ×3 (08:31→16:19)
[2020-06-24 09:07] LABS: BAND % (MANUAL) 1 % (0.0-5.0); LYMPHOCYTES % (MANUAL) 3 % (16-48); MONOCYTES % (MANUAL) 5 % (0-11.0); NEUTROPHILS % (MANUAL) 91 (42-76)
[2020-06-24] MEDS: ESCITALOPRAM OXALATE (10 MG) 10 MG TABLET PO SCH (10:33)
[2020-06-24 12:00] VITALS: BP 145/89
--- NOTE | 2020-06-24 12:00 | NUR ---
RN NOTES PT STABLE, CONTINUE TO MONITOR .
[2020-06-24] MEDS: AZITHROMYCIN 250 MG TABLET PO SCH (12:14)
[2020-06-24 16:00] VITALS: BP 136/81
[2020-06-24] MEDS: CEFEPIME 1 GM in IV D5W 50 ML IV SCH (16:19)
--- NOTE | 2020-06-24 18:27 | NUR ---
RN NOTES NO SIGNIFICANT CHANGES NOTED ON THIS SHIFT , WILL ENDORSE TO PAINT LINE SUPERVISOR NURSE FOR CONTINUITY OF CARE .
--- NOTE | 2020-06-24 19:25 | NUR ---
RN NOTE RECEIVED PT AWAKE AND ALERT/ORIENTED X 3 WITH HEAD OF BED ELEVATED. ON ROOM AIR, RESPIRATIONS UNLABORED. NSR ON THE DIVIDER OPERATOR. WITH RIGHT WRIST IV PATENT WITH NS @ 40CC/HOUR RUNNING ORDERED. DENIES PAIN OR DISCOMFORT, PLAN OF CARE DISCUSSED, CALL LIGHT WITHIN REACH, SAFETY MEASURES IN PLACE PER PROTOCOL, BED ALARM ON, BED LOCKED AND IN LOW POSITIONED, SIDE RAILS UP X 2,
[2020-06-24 20:00] VITALS: BP 119/79
--- NOTE | 2020-06-24 21:56 | NUR ---
RN NOTE RECEIVED CALL FROM DR. SAVANAH MAGANA. MD WILL COME TONIGHT TO PLACE HD CATHETER.
[2020-06-24] MEDS ORDERED: HEPARIN SODIUM, PORCINE 1000 UNIT/1 ML VIAL IV STA ×2 (22:08→22:17)
[2020-06-24] MEDS ORDERED: HEPARIN SODIUM, PORCINE 5000 UNITS/1 ML VIAL ONE (22:44)
--- NOTE | 2020-06-24 23:13 | NUR ---
RN NOTE S/P PLACEMENT OF RIGHT INTERNAL JUGULAR HD CATHETER BY DR. SAVANAH MAGANA. PT TOLERATED WELL. STAY CHEST X RAY ORDERED.
[2020-06-24] MEDS: VANCOMYCIN 500 MG in IV D5W 100 ML IV SCH (23:59)
[2020-06-25] VITALS: BP 119/81
--- NOTE | 2020-06-25 | NUR ---
RN NOTE VANCO TROUGH 22. VANCOMYCIN 500MG IV NOT ADMINISTERED. CALLED AND NOTIFIED [facility].
[2020-06-25] MEDS: IV NS 0.9% 1,000 ML IV PRN (00:09)
[2020-06-25 04:00] VITALS: BP 120/74
[2020-06-25] MEDS: METRONIDAZOLE 500MG/ NS 100ML 500 MG in PREMIX 1 EA IV SCH ×3 (05:04→21:58)
[2020-06-25 06:23] LABS: BASOPHILS % (AUTO) 0.2 % (0.0-2.0); HEMATOCRIT 33 % (33-45); HEMOGLOBIN 10.9 g/dL (11.5-14.8); LYMPHOCYTES # (AUTO) 0.6 /CMM (0.8-4.8); MEAN CORPUSCULAR HGB CONC 33 g/dl (31.0-36.0); MEAN CORPUSCULAR VOLUME 83 fL (82-100); MONOCYTES # (AUTO) 1.1 /CMM (0.1-1.30); MONOCYTES % (AUTO) 5.5 % (2.0-12.0); NEUTROPHILS # (AUTO) 17.1 /CMM (1.8-8.9); NEUTROPHILS % (AUTO) 89.3 % (43.0-81.0); PLATELET COUNT (AUTO) 177 /CMM (150-450); RED BLOOD CELL COUNT(AUTO) 3.97 MIL/uL (4.0-5.2); WHITE BLOOD COUNT (AUTO) 19.1 K/uL (4.3-11.0)
[2020-06-25 06:32] LABS: CALCIUM, SERUM 7.4 mg/dL (8.5-10.1); CREATININE 5.9 mg/dL (0.6-1.3); POTASSIUM 3.7 mmol/L (3.5-5.1)
--- NOTE | 2020-06-25 06:48 | NUR ---
RN NOTE NO ACUTE CHANGES OBSERVED OVERNIGHT. PT IS SLEEPING IN BED WITH HEAD OF BED ELEVATED, EASILY AROUSABLE VIA EXTERNAL STMULI, ON ROOM AIR, RESPIRATIONS UNLABORED. NO SIGNS OF PAIN OR DISCOMFORT, NSR ON THE CIRCULAR KNITTER. WITH RIGHT WRIST IV PATENT WITH NS @ 40CC/HOUR RUNNING ORDERED, RIGHT INTERNAL JUGULAR HD CATHETER INTACT, WATSON CATHETER PATENT AND IN PLACE DRAINING URINE VIA GRAVITY, CALL LIGHT WITHIN REACH, SAFETY MEASURES IN PLACE PER PROTOCOL, BED ALARM ON, BED LOCKED AND IN LOW POSITIONED, SIDE RAILS UP X 2, WILL ENDORSE TO MORNING RN FOR SUELLEN.
--- NOTE | 2020-06-25 06:51 | NUR ---
RN NOTE RECEIVED ALERT FOR CRITICAL LAB VALUES CO2 10. BUN 141. BUN TRENDING HIGHER. AWARE. PT PENDING HEMODIALYSIS PER NEPHROLOGY TODAY. WILL ENDORSE TO MORNING RN .
--- NOTE | 2020-06-25 07:05 | NUR ---
RN NOTES RECEIVED PT ON BED , A/Ox3-4, ON RA, NO SOB NOTED, ON TELE SR-ST HR IN 90'S , WATSON DRAINING TO GRAVITY, NS AT 40CC/HR RUNNING , R WRIST IV SITE AND R IJ HD CATH , CLEAN, DRY AND INTACT, SR UP x3, CALL LIGHT WITHIN EASY REACH, BED LOCKED AND IN LOWEST POSITION, CONTINUE TO MONITOR .
[2020-06-25 07:06] LABS: *ANA ANTI-CENTROMERE B AB <0.2 AI (0.0-0.9); *ANA ANTI-DNA(DS) AB, QN <1 IU/mL (0-9); *ANA ANTI-JO-1 <0.2 AI (0.0-0.9); *ANA ANTICHROMATIN ANTIBODY <0.2 AI (0.0-0.9); *ANA RNP ANTIBODIES 0.2 AI (0.0-0.9); *ANA SJOGREN'S ANTI-SS-A <0.2 AI (0.0-0.9); *ANA SJOGREN'S ANTI-SS-B <0.2 AI (0.0-0.9); *ANAANTI-SCLERODERMA-70 AB <0.2 AI (0.0-0.9); *ANASMITH AB <0.2 AI (0.0-0.9)
[2020-06-25 08:00] VITALS: BP 117/76
[2020-06-25] MEDS: ESCITALOPRAM OXALATE (10 MG) 10 MG TABLET PO SCH (08:34)
[2020-06-25] MEDS: METOCLOPRAMIDE HCL 10 MG/10 ML UDC PO SCH ×3 (08:34→16:28)
[2020-06-25 09:09] LABS: BAND % (MANUAL) 3 % (0.0-5.0); EOSINOPHILS % (MANUAL) 1 % (0-4); LYMPHOCYTES % (MANUAL) 5 % (16-48); MONOCYTES % (MANUAL) 7 % (0-11.0); NEUTROPHILS % (MANUAL) 84 (42-76)
[2020-06-25] MEDS ORDERED: VANCOMYCIN 500 MG in IV D5W 100 ML IV PRN (11:30)
[2020-06-25 12:00] VITALS: BP 113/71
[2020-06-25] MEDS ORDERED: ALBUMIN 25% 25 GM in PREMIX 1 EA IV STA (14:17)
[2020-06-25] MEDS: CEFTRIAXONE 1 G in IV D5W 50 ML IV SCH (14:52)
[2020-06-25 16:00] VITALS: BP 110/62
--- NOTE | 2020-06-25 17:00 | NUR ---
RN NOTES PT RECEIVED HD , NO OUTPUT PER HD NURSE , VSS STABLE CONTINUE TO MONITOR .
--- NOTE | 2020-06-25 18:25 | NUR ---
RN NOTES PT STATED WANTS TO SLEEP , REFUSED TO EAT DINNER , VSS STABLE, NO SIGNIFICANT CHANGES NOTED ON THIS SHIFT , WILL ENDORSE TO CHEF INSTRUCTOR NURSE FOR CONTINUITY OF CARE .
[2020-06-25 20:00] VITALS: BP 111/73
--- NOTE | 2020-06-25 20:44 | NUR ---
RN NOTES, ENDORSED PATIENT TO EZEKIEL RN FOR CONTINUATION OF CARE, PATIENT IN STABLE CONDITION, NO SOB/ACUTE DISTRESS NOTED.
--- NOTE | 2020-06-25 21:16 | NUR ---
GUANAKO/RN ASSUMED CARE FOR CONTINUITY OF CARE, PATIENT WAS IN BED, APPEAR SLEEPING, APPEAR COMFORTABLE, BREATHING EVEN AND UNLABORED, CALL LIGHT IN REACH, WILL MONITOR.
[2020-06-25 23:23] LABS: CALCIUM, SERUM 7.8 mg/dL (8.5-10.1); CREATININE 4.7 mg/dL (0.6-1.3)
[2020-06-26 00:33] VITALS: BP 126/76
--- NOTE | 2020-06-26 01:08 | NUR ---
GUANAKO/RN BMP DONE AT 2300, K=3.0, NOTIFIED CATALINA HUNG, RECEIVED ORDER OF KCL 60 MEQ IV. UPPER LEATHER SORTERASHLEIGH ZULETA VERIFIED WITH CATALINA HUNG, THE KCL 60 MEQ, CATALINA HUNG, CONFIRMED THE ORDER.
[2020-06-26] MEDS ORDERED: POTASSIUM CHLORIDE 10 MEQ/50 ML PREMIXED IVPB FOR PERIPHERAL LINE IV SCH (01:30)
--- NOTE | 2020-06-26 01:40 | NUR ---
GUANAKO/RN KCL 60 MEQ IV WAS DISCONTINUED BY CATALINA HUNG, THE PATIENT IS A DIALYSIS PATIENT. WILL DEFER TO NEON MOLDER IN A.M.
[2020-06-26] MEDS: IV NS 0.9% 1,000 ML IV PRN (03:22)
[2020-06-26 04:00] VITALS: BP 124/68
[2020-06-26] MEDS: METRONIDAZOLE 500MG/ NS 100ML 500 MG in PREMIX 1 EA IV SCH ×3 (05:48→21:49)
--- NOTE | 2020-06-26 05:55 | NUR ---
GUANAKO/RN PATIENT IS AWAKE, ALERT, COMFORTABLE, NOTED TO HAVE LOOSE, BIG BM, CLEANSED, GOOD SKIN CARE DONE, TOTAL LINEN CHANGE WAS DONE, F/C CARE WAS DONE, REPOSITIONED TO COMFORT. ALL NEEDS ATTENDED AT THIS TIME, WILL CONTINUE TO MONITOR.
[2020-06-26 06:41] LABS: BASOPHILS % (AUTO) 0.2 % (0.0-2.0); EOSINOPHILS % (AUTO) 0.4 % (0.0-6.0); HEMATOCRIT 28 % (33-45); HEMOGLOBIN 9.6 g/dL (11.5-14.8); LYMPHOCYTES # (AUTO) 0.6 /CMM (0.8-4.8); LYMPHOCYTES % (AUTO) 3.2 % (20.0-44.0); MEAN CORPUSCULAR HGB CONC 34 g/dl (31.0-36.0); MEAN CORPUSCULAR VOLUME 84 fL (82-100); MONOCYTES # (AUTO) 0.9 /CMM (0.1-1.30); NEUTROPHILS # (AUTO) 17.1 /CMM (1.8-8.9); NEUTROPHILS % (AUTO) 91.2 % (43.0-81.0); PLATELET COUNT (AUTO) 190 /CMM (150-450); RED BLOOD CELL COUNT(AUTO) 3.39 MIL/uL (4.0-5.2); WHITE BLOOD COUNT (AUTO) 18.8 K/uL (4.3-11.0)
[2020-06-26 07:26] LABS: CALCIUM, SERUM 7.6 mg/dL (8.5-10.1); CREATININE 4.9 mg/dL (0.6-1.3); MAGNESIUM 2.6 mg/dL (1.8-2.4); PHOSPHORUS 7.7 mg/dL (2.5-4.9)
--- NOTE | 2020-06-26 07:50 | NUR ---
RN OPENING NOTE PATIENT IS CURRENTLY IN BED WITH HOB AT SEMI FOWLERS POSITION. CURRENTLY ON ROOM AIR WITH NO SIGNS OF LABORED BREATHING. PATIENT IS AOX3. WATSON CATHETER IS IN PLACE. DTI AND SACRAL WOUNDS ARE NOTED. IV ACCESS IS PATENT, AND INTACT. BED IS LOCKED IN THE LOWEST POSITION, 3 GUARD RAILS RAISED, AND ALL HOSPITAL SAFETY PRECAUTIONS ARE BEING FOLLOWED. WILL CONTINUE TO MONITOR THROUGHOUT SHIFT.
[2020-06-26 08:00] VITALS: BP 114/75
[2020-06-26 08:06] LABS: IMMUNOGLOBULIN A, SERUM 327 mg/dL (87-352); IMMUNOGLOBULIN G, SERUM 1449 mg/dL (586-1602); IMMUNOGLOBULIN M, SERUM 138 mg/dL (26-217)
[2020-06-26] MEDS: ESCITALOPRAM OXALATE (10 MG) 10 MG TABLET PO SCH (08:36)
[2020-06-26] MEDS: METOCLOPRAMIDE HCL 10 MG/10 ML UDC PO SCH ×3 (08:36→16:16)
[2020-06-26 11:54] LABS: BAND % (MANUAL) 7 % (0.0-5.0); EOSINOPHILS % (MANUAL) 1 % (0-4); LYMPHOCYTES % (MANUAL) 4 % (16-48); MONOCYTES % (MANUAL) 4 % (0-11.0); MYELOCYTES % 3 % (0-0); NEUTROPHILS % (MANUAL) 81 (42-76)
[2020-06-26] MEDS: CEFTRIAXONE 1 G in IV D5W 50 ML IV SCH (13:00)
[2020-06-26 16:00] VITALS: BP 118/76
--- NOTE | 2020-06-26 16:53 | NUR ---
RN NOTE URINALYSIS COLLECTED. AWAITING LAB SHEARING MACHINE TENDER.
[2020-06-26 17:31] LABS: BILIRUBIN,URINE NEGATIVE (NEGATIVE); COLOR,URINE YELLOW (YELLOW); LEUKOCYTE ESTERASE ,URINE TRACE (NEGATIVE); NITRITE, URINE NEGATIVE (NEGATIVE); PROTEIN,URINE 100 mg/dl (NEGATIVE); UGLUCOSE NEGATIVE (NEGATIVE); UROBILINOGEN,URINE 0.2 EU/dL (0.2)
[2020-06-26 17:42] LABS: BACTERIA,URINE Few /HPF (None Seen)
[2020-06-26 17:43] LABS: URINE AMORPHOUS URATE Few /HPF (None Seen)
[2020-06-26 18:06] LABS: EOSINOPHIL,URINE None Seen
[2020-06-26 18:24] LABS: URINE TOTAL PROTEIN 204.1 mg/dL (0-11.9)
--- NOTE | 2020-06-26 18:49 | NUR ---
RN CLOSING NOTE PATIENT IS CURRENTLY IN BED WITH HOB AT SEMI FOWLERS POSITION. CURRENTLY ON ROOM AIR WITH NO SIGNS OF LABORED BREATHING. PATIENT IS AOX3. WATSON CATHETER IS IN PLACE. DTI AND SACRAL WOUNDS HAD APPROPRIATE WOUND CARE APPLIED. IV ACCESS IS PATENT, AND INTACT. BED IS LOCKED IN THE LOWEST POSITION, 3 GUARD RAILS RAISED, AND ALL HOSPITAL SAFETY PRECAUTIONS ARE BEING FOLLOWED. ALL DUE MEDS GIVEN AND PATIENT REMAINED STABLE THROUGHOUT SHIFT. WILL ENDORSE TO SAXOPHONE PLAYER RN FOR SUELLEN.
[2020-06-26 20:00] VITALS: BP 119/77
[2020-06-26 23:48] LABS: CALCIUM, SERUM 7.7 mg/dL (8.5-10.1); CREATININE 3.9 mg/dL (0.6-1.3); POTASSIUM 3.1 mmol/L (3.5-5.1)
--- NOTE | 2020-06-27 00:08 | NUR ---
report given to TRAV FOR SUELLEN.
[2020-06-27 01:10] VITALS: BP 119/77
[2020-06-27] MEDS: IV NS 0.9% 1,000 ML IV PRN (03:33)
[2020-06-27] MEDS: METRONIDAZOLE 500MG/ NS 100ML 500 MG in PREMIX 1 EA IV SCH ×2 (05:19→13:54)
[2020-06-27 05:33] VITALS: BP 141/88
[2020-06-27 05:51] LABS: BASOPHILS # (AUTO) 0.1 /CMM (0.0-0.2); BASOPHILS % (AUTO) 0.3 % (0.0-2.0); EOSINOPHILS % (AUTO) 0.4 % (0.0-6.0); HEMATOCRIT 28 % (33-45); HEMOGLOBIN 9.5 g/dL (11.5-14.8); LYMPHOCYTES # (AUTO) 0.6 /CMM (0.8-4.8); LYMPHOCYTES % (AUTO) 3.2 % (20.0-44.0); MEAN CORPUSCULAR HGB CONC 34 g/dl (31.0-36.0); MEAN CORPUSCULAR VOLUME 84 fL (82-100); MONOCYTES # (AUTO) 1.1 /CMM (0.1-1.30); MONOCYTES % (AUTO) 5.6 % (2.0-12.0); NEUTROPHILS # (AUTO) 17.7 /CMM (1.8-8.9); NEUTROPHILS % (AUTO) 90.5 % (43.0-81.0); PLATELET COUNT (AUTO) 204 /CMM (150-450); RED BLOOD CELL COUNT(AUTO) 3.38 MIL/uL (4.0-5.2); WHITE BLOOD COUNT (AUTO) 19.5 K/uL (4.3-11.0)
[2020-06-27 06:08] LABS: MAGNESIUM 2.5 mg/dL (1.8-2.4); PHOSPHORUS 6.3 mg/dL (2.5-4.9)
--- NOTE | 2020-06-27 06:53 | NUR ---
RN NOTES PT ALERT AND ORIENTED X3 IN BED NO PAIN OR DISCOMFORT NOTED OR REPORTED AT THIS TIME. PT ON ROOM AIR TOLERATING WELL. HAS IV ACCESS ON THE R WRIST 20 G AND L HAND 20G INTACT PATENT FLUSHING WELL. NO REDNESS OR SWELLING NOTED AT IV SITE. RUNNING NS @ 40 ML/HR. ALL NURSING NEEDS MET.ALL DUE MEDICATIONS GIVEN AND TOLERATED WELL. CALL LIGHT WITHIN REACH. SAFETY PRECAUTIONS FOLLOWED. WILL ENDORSE CARE TO DAY SHIFT NURSE.
--- NOTE | 2020-06-27 07:30 | NUR ---
MS RN OPENING NOTE RECEIVED PATIENT IN BED, RESTING. SEMI FOWLERS POSITION. PATIENT ON ROOM AIR - TOLERATING WELL. NO SIGNS OR PAIN OR RESPIRATORY DISTRESS. WATSON CATHETER IS IN PLACE AND DRAINING TO GRAVITY. IV ACCESS IS PATENT, AND INTACT. BED IS LOCKED AND IN LOWEST POSITION. SIDE RAILS X3. SAFETY PRECAUTIONS IN PLACE. WILL CONTINUE TO MONITOR.
[2020-06-27] MEDS: ESCITALOPRAM OXALATE (10 MG) 10 MG TABLET PO SCH (08:56)
[2020-06-27] MEDS: METOCLOPRAMIDE HCL 10 MG/10 ML UDC PO SCH ×4 (08:56→17:25)
[2020-06-27 10:43] LABS: LYMPHOCYTES % (MANUAL) 2 % (16-48); MONOCYTES % (MANUAL) 5 % (0-11.0); MYELOCYTES % 1 % (0-0); NEUTROPHILS % (MANUAL) 92 (42-76)
[2020-06-27 12:46] VITALS: BP 141/88
[2020-06-27] MEDS: CEFTRIAXONE 1 G in IV D5W 50 ML IV SCH (13:03)
--- NOTE | 2020-06-27 17:10 | NUR ---
MS RN NOTE PATIENT REFUSED METOCLOPRAMIDE. STATES SHE WANTS TO BE LEFT ALONE TO REST
--- NOTE | 2020-06-27 18:38 | NUR ---
MS RN CLOSING NOTE PATIENT IS CURRENTLY LYING IN BED, RESTING. SEMI FOWLERS POSITION. ON ROOM AIR - TOLERATING WELL. NO SIGNS OF RESPIRATORY DISTRESS. PATIENT IS A/O X3. WATSON CATHETER IS IN PLACE AND DRAINING TO GRAVITY. DTI AND SACRAL WOUNDS HAD APPROPRIATE WOUND CARE APPLIED. IV ACCESS IS PATENT, AND INTACT - RUNNING NS @ 40ML/HR. BED IS LOCKED AND IN THE LOWEST POSITION, SIDE RAILS X3. SAFETY PRECAUTIONS IN PLACE. WILL ENDORSE TO BOWLING BALL PATCHER NURSE FOR SUELLEN.
[2020-06-27 20:00] VITALS: BP 133/68
[2020-06-27 23:14] LABS: CREATININE 3.3 mg/dL (0.6-1.3); POTASSIUM 2.9 mmol/L (3.5-5.1)
[2020-06-28 04:00] VITALS: BP 140/85
--- NOTE | 2020-06-28 05:31 | NUR ---
RN notes In bed resting comfortably with no respiratory distress. On O2 at 3L/hr via nasal cannula, tolerating well. Alert and oriented x 4. Noted with severe weakness. No complaint of pain or discomfort, Vital signs wnl. Kept clean and oriented. Will endorse to next shift for continuity of care.
[2020-06-28 06:28] LABS: BASOPHILS % (AUTO) 0.1 % (0.0-2.0); EOSINOPHILS % (AUTO) 0.5 % (0.0-6.0); HEMATOCRIT 28 % (33-45); HEMOGLOBIN 9.1 g/dL (11.5-14.8); LYMPHOCYTES # (AUTO) 0.8 /CMM (0.8-4.8); MEAN CORPUSCULAR HGB CONC 33 g/dl (31.0-36.0); MEAN CORPUSCULAR VOLUME 85 fL (82-100); MONOCYTES # (AUTO) 0.8 /CMM (0.1-1.30); MONOCYTES % (AUTO) 4.2 % (2.0-12.0); NEUTROPHILS # (AUTO) 17.6 /CMM (1.8-8.9); NEUTROPHILS % (AUTO) 91.2 % (43.0-81.0); PLATELET COUNT (AUTO) 249 /CMM (150-450); RED BLOOD CELL COUNT(AUTO) 3.25 MIL/uL (4.0-5.2); WHITE BLOOD COUNT (AUTO) 19.3 K/uL (4.3-11.0)
[2020-06-28 06:57] LABS: MAGNESIUM 2.1 mg/dL (1.8-2.4); PHOSPHORUS 5.5 mg/dL (2.5-4.9)
[2020-06-28] MEDS: IV NS 0.9% 1,000 ML IV PRN (06:58)
--- NOTE | 2020-06-28 07:30 | NUR ---
RN OPENING NOTES PRESENT IN BED, RESTING COMFORTABLY, ON RA, SPO2 100%, NO SOB OR DISTRESS NOTED, WATSON CATHETER IS IN PLACE , INTACT,PATENT, DRAINING YELLOW URINE BY GRAVITY, IV LINE FLUSHED AND INTACT, BED IS LOCKED AND IN LOWEST POSITION. SIDE RAILS X3. SAFETY PRECAUTIONS IN PLACE. WILL CONTINUE TO MONITOR.
[2020-06-28] MEDS: ESCITALOPRAM OXALATE (10 MG) 10 MG TABLET PO SCH (08:50)
[2020-06-28] MEDS: METOCLOPRAMIDE HCL 10 MG/10 ML UDC PO SCH ×3 (08:51→17:46)
[2020-06-28 09:38] LABS: BAND % (MANUAL) 6 % (0.0-5.0); LYMPHOCYTES % (MANUAL) 2 % (16-48); MONOCYTES % (MANUAL) 6 % (0-11.0); NEUTROPHILS % (MANUAL) 86 (42-76)
[2020-06-28] MEDS: CEFTRIAXONE 1 G in IV D5W 50 ML IV SCH (14:21)
[2020-06-28 16:00] VITALS: BP 139/81
--- NOTE | 2020-06-28 18:55 | NUR ---
CLOSING NOTES REMAINS IN BED, STABLE, PROVIDED WITH HYGIENE, MEDS, FLUIDS AND FOOD, NO ACUTE CHANGES DURING SHIFT, WILL ENDORSE TO PM SHIFT RN FOR SUELLEN
--- NOTE | 2020-06-28 19:30 | NUR ---
MS/RN OPENING NOTES RECEIVED PATIENT IN BED RESTING. PATIENT IS ALERT AND ORIENTED X 2. PATIENT BREATHING IS EVEN AND UNLABORED. NO SIGNS OF SOB OR RESPIRATORY DISTRESS NOTED. PATIENT IV ACCESS INTACT FLUSHING WELL. SAFETY MEASURES ARE IN PLACE, BED IS LOCKED AND PLACED IN THE LOWEST POSITION, CALL LIGHT IS WITHIN REACH, WILL CONTINUE WITH PATIENT PLAN OF CARE.
[2020-06-28 23:29] LABS: CALCIUM, SERUM 7.5 mg/dL (8.5-10.1); POTASSIUM 3.1 mmol/L (3.5-5.1)
[2020-06-29 04:00] VITALS: BP 154/86
[2020-06-29 04:57] LABS: OCCULT BLOOD STOOL POSITIVE (NEGATIVE)
[2020-06-29] MEDS: IV NS 0.9% 1,000 ML IV PRN (06:04)
[2020-06-29 06:24] LABS: BASOPHILS % (AUTO) 0.2 % (0.0-2.0); EOSINOPHILS % (AUTO) 0.6 % (0.0-6.0); HEMATOCRIT 28 % (33-45); HEMOGLOBIN 9.1 g/dL (11.5-14.8); LYMPHOCYTES # (AUTO) 0.8 /CMM (0.8-4.8); LYMPHOCYTES % (AUTO) 4.1 % (20.0-44.0); MEAN CORPUSCULAR HGB CONC 33 g/dl (31.0-36.0); MEAN CORPUSCULAR VOLUME 86 fL (82-100); MONOCYTES # (AUTO) 0.8 /CMM (0.1-1.30); MONOCYTES % (AUTO) 4.2 % (2.0-12.0); NEUTROPHILS # (AUTO) 17.3 /CMM (1.8-8.9); NEUTROPHILS % (AUTO) 90.9 % (43.0-81.0); PLATELET COUNT (AUTO) 263 /CMM (150-450); RED BLOOD CELL COUNT(AUTO) 3.24 MIL/uL (4.0-5.2); WHITE BLOOD COUNT (AUTO) 19.1 K/uL (4.3-11.0)
--- NOTE | 2020-06-29 06:35 | NUR ---
MS/RN CLOSING NOTES PATIENT IN BED SLEEPING EASY TO AROUSE . PATIENT IS ALERT AND ORIENTED X 2. PATIENT BREATHING IS EVEN AND UNLABORED. NO SIGNS OF SOB OR RESPIRATORY DISTRESS NOTED. PATIENT IV ACCESS INTACT FLUSHING WELL RUNNING NS AT 40CC/HR. WATSON CATH IS IN PLACED DRAINING CLEAR YELLOW URINE. ALL NEEDS HAVE BEEN MET DURING SHIFT. SAFETY MEASURES ARE IN PLACE, BED IS LOCKED AND PLACED IN THE LOWEST POSITION, CALL LIGHT IS WITHIN REACH, WILL ENDORSE CARE TO DAY SHIFT NURSE.
--- NOTE | 2020-06-29 07:30 | NUR ---
RN OPENING NOTES PATIENT PRESENT IN BED, AWAKE, A/OX3, ON ROOM AIR SPO2 99%, DENIES PAIN, NO SOB OR DISTRESS NOTED, IV LINE PATENT AND INTACT, WATSON CATH IN PLACE, DRAINING YELLOW URINE BY GRAVITY, HOB ELEVATED, CALL LIGHT IN REACH, ROOM CLOSE TO NURSING STATION, WILL CONT TO MONITOR
[2020-06-29 07:52] LABS: MAGNESIUM 2.4 mg/dL (1.8-2.4)
[2020-06-29 08:00] VITALS: BP 163/94
[2020-06-29] MEDS: METOCLOPRAMIDE HCL 10 MG/10 ML UDC PO SCH ×3 (09:25→18:42)
[2020-06-29] MEDS: ESCITALOPRAM OXALATE (10 MG) 10 MG TABLET PO SCH (09:25)
[2020-06-29 13:42] LABS: BAND % (MANUAL) 2 % (0.0-5.0); LYMPHOCYTES % (MANUAL) 7 % (16-48); MONOCYTES % (MANUAL) 5 % (0-11.0); NEUTROPHILS % (MANUAL) 86 (42-76)
[2020-06-29] MEDS: CEFTRIAXONE 1 G in IV D5W 50 ML IV SCH (14:02)
[2020-06-29 16:00] VITALS: BP 139/84
--- NOTE | 2020-06-29 18:59 | NUR ---
RN CLOSING NOTES REMAINS IN BED, STABLE, TOLERATED DIALYSES WELL, HAVE POOR PO INTACE, WATSON OUTPUT 300CC, MEDS GIVEN, COMFORT NEEDS PROVIDED WILL ENDORSE TO PM SHIFT RN FOR SUELLEN
[2020-06-29 20:00] VITALS: BP 133/71
[2020-06-29 23:38] LABS: CALCIUM, SERUM 6.9 mg/dL (8.5-10.1); CREATININE 3.3 mg/dL (0.6-1.3); POTASSIUM 3.1 mmol/L (3.5-5.1)
[2020-06-30 04:00] VITALS: BP 142/62
--- NOTE | 2020-06-30 04:49 | NUR ---
RN notes In bed, resting comfortably with no distress noted. Breathing even and unlabored. On room air, tolerating well. No significant change of condition. Dr. Garza ordered stool culture and c-diff, specimen taken to lab, waiting for result. No complaint of pain or discomfort. Alert and oriented. Able to verbalize needs. Vital signs wnl. On santamaria catheter draining clear yellow urine. Kept clean and dry. Will continue to monitor.
[2020-06-30] MEDS: IV NS 0.9% 1,000 ML IV PRN (06:00)
--- NOTE | 2020-06-30 06:23 | NUR ---
RN notes Stool specimen #1 collected at 01:15 06/30/20. C-diff forem filled up. Specimen and form given to labs. Will endorse to next shift to collect 2 more specimen within 24 hours..
[2020-06-30 06:26] LABS: BASOPHILS # (AUTO) 0.1 /CMM (0.0-0.2); BASOPHILS % (AUTO) 0.3 % (0.0-2.0); EOSINOPHILS % (AUTO) 0.4 % (0.0-6.0); HEMATOCRIT 26 % (33-45); HEMOGLOBIN 8.6 g/dL (11.5-14.8); LYMPHOCYTES # (AUTO) 0.8 /CMM (0.8-4.8); LYMPHOCYTES % (AUTO) 3.8 % (20.0-44.0); MEAN CORPUSCULAR HGB CONC 33 g/dl (31.0-36.0); MEAN CORPUSCULAR VOLUME 86 fL (82-100); MONOCYTES # (AUTO) 0.7 /CMM (0.1-1.30); MONOCYTES % (AUTO) 3.8 % (2.0-12.0); NEUTROPHILS % (AUTO) 91.7 % (43.0-81.0); PLATELET COUNT (AUTO) 261 /CMM (150-450); WHITE BLOOD COUNT (AUTO) 19.6 K/uL (4.3-11.0)
--- NOTE | 2020-06-30 07:15 | NUR ---
SAUSAGE TIER OPENING NOTES RECEIVED PT ON BED, AAOX3-4, RESPONSIVE TO ALL STIMULI. RESPIRATION EVEN AND NON LABORED WITH NO ACUTE RESPIRATORY DISTRESS, ON O2 AT 3LPM VIA N/C DUE TO DESATURATION AT NIGHT PER REPORT 89-90%. ABD SOFT AND NON DISTENDED WITH ACTIVE BOWEL SOUNDS. DENIES PAIN AND DISCOMFORT. SKIN WARM TO TOUCH AND DRY. TO COLLECT X2 STOOL FOR R/O C-DIFF. FC PRESENT WITH YELLOW OUTPUT, NO SEDIMENTS NOTED. IV SITE AT RIGHT HAND #22, PATENT IN FLUSHING, NO S/SX OF INFILTRATION, IVF NS @ 40 CC/HR, RIGHT IJ CATH FOR HD. PT WITH FLUID RESTRICTION OF 800 ML/DAY. ALL CONCERNS ATTENDED. BED IN LOW LOCKED POSITION, CALL LIGHT WITHIN REACHED, SRX2 UP FOR SAFETY. WILL CONT TO MONITOR CARE.
[2020-06-30 08:00] VITALS: BP 170/94
[2020-06-30] MEDS: METOCLOPRAMIDE HCL 10 MG/10 ML UDC PO SCH ×3 (08:13→16:24)
[2020-06-30] MEDS: ESCITALOPRAM OXALATE (10 MG) 10 MG TABLET PO SCH (08:13)
[2020-06-30 09:39] LABS: EOSINOPHILS % (MANUAL) 1 % (0-4); LYMPHOCYTES % (MANUAL) 2 % (16-48); MONOCYTES % (MANUAL) 2 % (0-11.0); NEUTROPHILS % (MANUAL) 95 (42-76)
--- NOTE | 2020-06-30 11:14 | NUR ---
M/S NOTES STOOL SPECIMEN #2 DROPPED OFF AT LAB FOR C-DIFF TEST. Addendum: 06/30/20 at 1116 by YOSI GARRETT RN COLLECTED 06/30/20 @ 11AM
--- NOTE | 2020-06-30 13:02 | NUR ---
M/S RN NOTES PER LAB NO NEED FOR NEW STOOL SPECIMEN, 2 SPECIMEN GIVEN AT 11 AM ENOUGH TO RUN THE TEST.
[2020-06-30] MEDS: CEFTRIAXONE 1 G in IV D5W 50 ML IV SCH (13:03)
[2020-06-30 16:00] VITALS: BP 155/90
[2020-06-30 16:32] VITALS: BP 155/90
--- NOTE | 2020-06-30 18:54 | NUR ---
M/S RN CLOSING NOTES PT AAOX4, ON RA 92-93%, NO PRESENCE OF ACUTE RESPIRATORY DISTRESS. FORM BROWN LIQUID BM TODAY X1. POOR ORAL INTAKE <50%. NO NEW SKIN BREAKDOWN. FC OUTPUT YELLOW. DENIES PAIN AND DISCOMFORT. IV SITE AT RIGHT HAND #22 PATENT IN FLUSHING, NO S/SX OF INFILTRATION, IVF NS@ 40 ML/HR, RIJ HD CATH DRESSING INTACT. ALL CONCERNS ATTENDED. BED KEPT IN LOW LOCKED POSITION, SRX2 UP FOR SAFETY, HOB ELEVATED POSITION. ALL CARE ATTENDED. ENDORSED CARE TO NEXT SHIFT.
--- NOTE | 2020-06-30 19:44 | NUR ---
RN NOTE PATIENT IN BED ALERT AND ORIENTED X3-4. ABLE TO MAKE NEEDS KNOWN. NO SOB OR ANY DISTRESS. ON ROOM AIR, O2 SAT 92%. NOTED WITH WATSON CATH, DRAINING YELLOW URINE TO GRAVITY. RIGHT IJ HD CATH IN PLACE, DRESSING DRY AND INTACT. RIGHT HAND #22 PATENT AND INTACT RUNNING IV NS @ 40 ML/HR. NO S/S OF ANY INFILTRATION. ALL NEEDS ANTICIPATED. BED LOCKED AND IN LOWEST POSITION. CALL LIGHT WITHIN REACH. WILL CONTINUE TO MONITOR.
[2020-07-01 04:00] VITALS: BP 158/88
--- NOTE | 2020-07-01 04:00 | NUR ---
PATIENT HAD A BOWEL MOVEMENT AND REQUESTED TO BE CHANGED. AFTER CLEANING AND DRYING PATIENT'S SKIN, NOTED WITH SACRAL DTI. NO BLEEDING OR ANY S/S OF INFECTION. DENIES ANY PAIN OR DISCOMFORT. KEPT CLEAN AND DRY AND TURNED PATIENT ONTO LEFT SIDE. CHARGE NURSE NOTIFIED. MADE AWARE.
[2020-07-01 05:55] LABS: BASOPHILS # (AUTO) 0.1 /CMM (0.0-0.2); BASOPHILS % (AUTO) 0.5 % (0.0-2.0); EOSINOPHILS % (AUTO) 0.5 % (0.0-6.0); HEMATOCRIT 25 % (33-45); HEMOGLOBIN 8.1 g/dL (11.5-14.8); LYMPHOCYTES # (AUTO) 0.8 /CMM (0.8-4.8); LYMPHOCYTES % (AUTO) 4.1 % (20.0-44.0); MEAN CORPUSCULAR HGB CONC 32 g/dl (31.0-36.0); MEAN CORPUSCULAR VOLUME 88 fL (82-100); MONOCYTES # (AUTO) 0.7 /CMM (0.1-1.30); MONOCYTES % (AUTO) 3.6 % (2.0-12.0); NEUTROPHILS # (AUTO) 16.6 /CMM (1.8-8.9); NEUTROPHILS % (AUTO) 91.3 % (43.0-81.0); PLATELET COUNT (AUTO) 250 /CMM (150-450); RED BLOOD CELL COUNT(AUTO) 2.89 MIL/uL (4.0-5.2); WHITE BLOOD COUNT (AUTO) 18.2 K/uL (4.3-11.0)
[2020-07-01 06:02] LABS: CALCIUM, SERUM 7.4 mg/dL (8.5-10.1); CREATININE 3.5 mg/dL (0.6-1.3); POTASSIUM 3.2 mmol/L (3.5-5.1)
[2020-07-01] MEDS: IV NS 0.9% 1,000 ML IV PRN (06:23)
--- NOTE | 2020-07-01 06:53 | NUR ---
RN NOTE PATIENT IN BED ALERT AND ORIENTED X3-4. ON ROOM AIR, O2 SAT 92%. NOTED WITH WATSON CATH, DRAINING YELLOW URINE TO GRAVITY OUTPUT OF 400CC. RIGHT IJ HD CATH IN PLACE, DRESSING DRY AND INTACT. RIGHT HAND #22 PATENT AND INTACT RUNNING IV NS @ 40 ML/HR. NO S/S OF ANY INFILTRATION. BED LOCKED AND IN LOWEST POSITION. CALL LIGHT WITHIN REACH. WILL ENDORSE TO AM SHIFT.
--- NOTE | 2020-07-01 07:31 | NUR ---
RN OPENING NOTE PATIENT IS CURRENTLY IN BED WITH HOB AT SEMI FOWLERS POSITION. PATIENT IS ON ROOM AIR WITH NO SIGNS OF LABORED BREATHING. PATIENT IS AOX4. WATSON CATHETER IS IN PLACE. SACRAL DTI IS NOTED. RHAND #22 IS PATENT AND INTACT. BED IS LOCKED IN THE LOWEST POSITION, 3 GUARD RAILS RAISED, CALL [place] WITHIN REACH, AND ALL HOSPITAL SAFETY PRECAUTIONS ARE BEING FOLLOWED. WILL CONTINUE TO MONITOR THROUGHOUT SHIFT.
[2020-07-01] MEDS: METOCLOPRAMIDE HCL 10 MG/10 ML UDC PO SCH ×3 (08:55→16:41)
[2020-07-01] MEDS: ESCITALOPRAM OXALATE (10 MG) 10 MG TABLET PO SCH (08:55)
[2020-07-01 16:00] VITALS: BP 139/73
--- NOTE | 2020-07-01 16:20 | NUR ---
RN NOTE CONSENT OBTAINED FOR EXPLANTATION OF RIGHT INTERNAL JUGULAR HD WILVER CATHETER.
--- NOTE | 2020-07-01 18:50 | NUR ---
RN CLOSING NOTE PATIENT IS CURRENTLY IN BED WITH HOB AT SEMI FOWLERS POSITION. PATIENT IS ON ROOM AIR WITH NO SIGNS OF LABORED BREATHING. PATIENT IS AOX4. WATSON CATHETER IS IN PLACE. RHAND #22 IS PATENT AND INTACT. BED IS LOCKED IN THE LOWEST POSITION, 3 GUARD RAILS RAISED, CALL [place] WITHIN REACH, AND ALL HOSPITAL SAFETY PRECAUTIONS ARE BEING FOLLOWED. ALL DUE MEDS GIVEN AND PATIENT REMAINED STABLE THROUGHOUT SHIFT. WILL ENDORSE TO FIXED WING AIRCRAFT CREW CHIEF RN.
--- NOTE | 2020-07-01 19:23 | NUR ---
RN NOTES PATIENT IS CURRENTLY IN BED WITH HOB AT SEMI FOWLERS POSITION. PATIENT IS ON ROOM AIR WITH NO SIGNS OF LABORED BREATHING. PATIENT IS AOX4. WATSON CATHETER IS IN PLACE. RHAND #22 IS PATENT AND INTACT. BED IS LOCKED IN THE LOWEST POSITION, 3 GUARD RAILS RAISED, CALL LIGHT WITHIN REACH, AND ALL HOSPITAL SAFETY PRECAUTIONS ARE BEING FOLLOWED. WILL CONTINUE TO MONITOR.
[2020-07-01 22:03] VITALS: BP 148/93
[2020-07-02] MEDS ORDERED: Z GUARD REMEDY 4 OZ OINT TP ONE (04:35)
[2020-07-02 05:42] VITALS: BP 142/80
[2020-07-02 06:28] LABS: BASOPHILS # (AUTO) 0.1 /CMM (0.0-0.2); BASOPHILS % (AUTO) 0.8 % (0.0-2.0); EOSINOPHILS % (AUTO) 0.4 % (0.0-6.0); HEMATOCRIT 26 % (33-45); HEMOGLOBIN 8.3 g/dL (11.5-14.8); LYMPHOCYTES # (AUTO) 0.8 /CMM (0.8-4.8); LYMPHOCYTES % (AUTO) 5.1 % (20.0-44.0); MEAN CORPUSCULAR HGB CONC 32 g/dl (31.0-36.0); MEAN CORPUSCULAR VOLUME 89 fL (82-100); MONOCYTES # (AUTO) 0.5 /CMM (0.1-1.30); MONOCYTES % (AUTO) 3.2 % (2.0-12.0); NEUTROPHILS % (AUTO) 90.5 % (43.0-81.0); PLATELET COUNT (AUTO) 246 /CMM (150-450); WHITE BLOOD COUNT (AUTO) 15.5 K/uL (4.3-11.0)
[2020-07-02] MEDS: IV NS 0.9% 1,000 ML IV PRN (06:39)
[2020-07-02 07:15] LABS: CALCIUM, SERUM 7.8 mg/dL (8.5-10.1); CREATININE 2.7 mg/dL (0.6-1.3); MAGNESIUM 1.9 mg/dL (1.8-2.4); POTASSIUM 3.5 mmol/L (3.5-5.1)
--- NOTE | 2020-07-02 07:24 | NUR ---
RN NOTES PATIENT IS CURRENTLY IN BED WITH HOB AT SEMI FOWLERS POSITION. PATIENT IS ON ROOM AIR WITH NO SIGNS OF LABORED BREATHING. PATIENT IS AOX4. WATSON CATHETER IS IN PLACE. R HAND #22 IS PATENT AND INTACT. BED IS LOCKED IN THE LOWEST POSITION, 3 GUARD RAILS RAISED, CALL LIGHT WITHIN REACH, AND ALL HOSPITAL SAFETY PRECAUTIONS ARE BEING FOLLOWED. WILL ENDORSE CARE TO DAY SHIFT NURSE.
--- NOTE | 2020-07-02 07:30 | NUR ---
RN OPENING NOTES RECEIVED PT IN BED, A/O X4. ON ROOM AIR SATURATING @96%. NO SOB OR ANY SIGNS OF DISTRESS. WATSON CATHETER IN PLACE, DRAINING YELLOW CLEAR URINE. IV ACCESS AT R HAND #22 INTACT AND PATENT. SAFETY MEASURES IN PLACE. CALL LIGHT WITHIN REACH. BED LOCKED AND IN LOWEST POSITION WITH SIDE RAILS UP X2. NO PAIN REPORTED AT THIS TIME. WILL CONTINUE TO MONITOR.
[2020-07-02] MEDS: ESCITALOPRAM OXALATE (10 MG) 10 MG TABLET PO SCH (09:13)
[2020-07-02] MEDS: METOCLOPRAMIDE HCL 10 MG/10 ML UDC PO SCH ×3 (09:13→17:29)
[2020-07-02 16:00] VITALS: BP 136/91
--- NOTE | 2020-07-02 18:44 | NUR ---
RN CLOSING NOTES NO SIGNIFICANT CHANGES NOTED. NO SOB. ALL MEDS GIVEN ORDERED. KEPT COMFORTABLE. NOT IN DISTRESS. WILL ENDORSE TO NIGHT RN FOR CONTINUITY OF CARE.
--- NOTE | 2020-07-02 19:50 | NUR ---
MS/RN OPENING NOTE RECEIVED PATIENT SLEEPING IN BED. ALERT AND ORIENTED X 4. ABLE TO MAKE NEEDS KNOWN. NO COMPLAINTS OF PAIN AT THIS TIME. IV ACCESS TO RIGHT HAND #22G INTACT AND PATENT. CONTINUES ON NS @ 40ML/HR. WATSON CATHETER INTACT AND PATENT. CONTINUES ON FLUID RESTRICTION. CALL LIGHT WITHIN REACH. ASPIRATION, FALL AND SAFETY PRECAUTIONS MAINTAINED. WILL CONTINUE TO MONITOR.
--- NOTE | 2020-07-02 20:47 | NUR ---
MS/COMPOSITION FLOOR LAYER NOTE PATIENT BEING TRANSFERRED TO [facility] FOR CONTINUITY OF CARE. PATIENT TRANSFERRED VIA AMBULANCE/GURNEY AND 2 ASSIGNMENT OFFICER @ APPROX. 2029. REPORT GIVEN TO ASSIGNMENT OFFICER. VS UPON TRANSFER: BP 146/90 HR 91 RR 20 T 98.2 O2 SAT 95% RA. PATIENT IS ALERT AND ORIENTED X 4. ABLE TO MAKE NEEDS KNOWN. NO COMPLAINTS OF PAIN AT THIS TIME. IV TO RIGHT HAND #22G AND WATSON CATHETER REMAIN IN PLACE FOR TRANSFER. IV IS SALINE LOCKED. WATSON CATHETER OUTPUT = 100CC. ALL TRANSFER PAPERWORK COMPLETED AND SIGNED. BELONGINGS LISTS REVIEWED AND SIGNED BY PATIENT. ALL BELONGINGS SENT WITH PATIENT. REPORT GIVEN TO [place] AT [facility].
== END 2020-07-02 20:30 | disposition short-term general hospital (02) | DRG 871 ==
LOC: EDBD 17:36 → ER 17:36 → TELE 21:12 → MED 06-20 11:47 → TELE-TD 06-23 09:31 → TELE1 06-25 09:30 → MEDSG1 06-26 08:05
PROVIDERS: ADMIT Family Medicine; ATTEND Internal Medicine
PROC: 05HM33Z Insertion of Infusion Device into Right Internal Jugular Vein, Percutaneous Approach (ICD-10-PCS; 2020-06-24)
PROC: B543ZZA Ultrasonography of Right Jugular Veins, Guidance (ICD-10-PCS; 2020-06-24)
PROC: 5A1D70Z Performance of Urinary Filtration, Intermittent, Less than 6 Hours Per Day (ICD-10-PCS; principal; 2020-06-25)
DX: A40.0 Sepsis due to streptococcus, group A (principal); N17.0 Acute kidney failure with tubular necrosis; E43 Unspecified severe protein-calorie malnutrition; J15.9 Unspecified bacterial pneumonia; G92 Toxic encephalopathy; E87.1 Hypo-osmolality and hyponatremia; E87.2 Acidosis; J98.11 Atelectasis; K56.7 Ileus, unspecified; K86.3 Pseudocyst of pancreas; F32.1 Major depressive disorder, single episode, moderate; K55.9 Vascular disorder of intestine, unspecified; E87.6 Hypokalemia; N18.9 Chronic kidney disease, unspecified; E80.6 Other disorders of bilirubin metabolism; E88.09 Other disorders of plasma-protein metabolism, not elsewhere classified; Z20.822 Contact with and (suspected) exposure to COVID-19; D69.6 Thrombocytopenia, unspecified; E86.1 Hypovolemia; E83.41 Hypermagnesemia; F03.90 Unspecified dementia, unspecified severity, without behavioral disturbance, psychotic disturbance, mood disturbance, and anxiety; Z81.8 Family history of other mental and behavioral disorders; K31.89 Other diseases of stomach and duodenum; N28.1 Cyst of kidney, acquired; I70.0 Atherosclerosis of aorta; M89.9 Disorder of bone, unspecified; D64.9 Anemia, unspecified; J02.0 Streptococcal pharyngitis; K31.84 Gastroparesis; E88.9 Metabolic disorder, unspecified; F43.9 Reaction to severe stress, unspecified
CPT/HCPCS: 36415; 36600; 71045-TC; 71250-TC; 74018; 76705-TC; 76770-TC; 80048-TC; 80053-TC; 80061-TC; 80076-TC; 80202-TC; 81001; 82140-TC; 82247-TC; 82248-TC; 82272-TC; 82550-TC; 82553; 82570-TC; 82728-TC; 82784; 82803-TC; 82962-TC; 83540-TC; 83605-TC; 83690-TC; 83735-TC; 83880; 83970; 84100-TC; 84155; 84155-TC; 84165; 84300-TC; 84439-TC; 84443-TC; 84484-TC; 84550-TC; 85025-TC; 85652-TC; 85730-TC; 86225; 86235; 86301; 86304; 86334; 86431-TC; 86706; 86803; 87040-TC; 87045-TC; 87070-TC; 87081-TC; 87086-TC; 87186-TC; 87340; 90935-TC; 93307-TC; 97112-TC; 97530-TC; A4216; A6403; C1750; C1751; C9803; G0378; J0692; J0696; J1644; J1940; J2543; J3370; J3490; J7030; J7040; J7050; J7060; J8597; P9047; Q9963; Q9967

== ENCOUNTER 2023-08-08 21:58 | Inpatient (IN) | payer BC, MEDICARE ==
[~2023-08-08] VITALS: Ht 162.6 cm; Wt 49.9 kg
[2023-08-08] MEDS ORDERED: ONDANSETRON HCL/PF 4 MG/2 ML VIAL ONE (23:19)
[2023-08-08] MEDS ORDERED: MORPHINE SULFATE INJ 2 MG/ML DISP.SYRIN ONE (23:20)
[2023-08-08] MEDS: ONDANSETRON HCL/PF 4 MG/2 ML VIAL IV ONE (23:45)
[2023-08-08] MEDS: IV NS 0.9% 1,000 ML BAG IV ONE (23:45)
[2023-08-08] MEDS: MORPHINE SULFATE INJ 2 MG/ML DISP.SYRIN IV ONE (23:56)
[2023-08-09 00:16] LABS: BASOPHILS % (AUTO) 0.1 % (0.0-2.0); EOSINOPHILS # (AUTO) 0.1 K/uL (0.0-0.7); EOSINOPHILS % (AUTO) 0.5 % (0.0-6.0); HEMATOCRIT 34 % (33-45); HEMOGLOBIN 10.7 g/dL (11.5-14.8); LYMPHOCYTES # (AUTO) 0.2 K/uL (0.8-4.8); LYMPHOCYTES % (AUTO) 1.6 % (20.0-44.0); MEAN CORPUSCULAR HEMOGLOBIN 29 PG (26.0-33.0); MEAN CORPUSCULAR HGB CONC 31 g/dl (31.0-36.0); MEAN CORPUSCULAR VOLUME 91 fL (82-100); MONOCYTES # (AUTO) 0.6 K/uL (0.1-1.30); MONOCYTES % (AUTO) 4.1 % (2.0-12.0); NEUTROPHILS # (AUTO) 13.3 K/uL (1.8-8.9); NEUTROPHILS % (AUTO) 93.7 % (43.0-81.0); PLATELET COUNT (AUTO) 69 K/uL (150-450); RED BLOOD CELL COUNT(AUTO) 3.76 MIL/uL (4.0-5.2); RED CELL DISTRIBUTION WIDTH 21.2 % (11.5-15.0); WHITE BLOOD COUNT (AUTO) 14.2 K/uL (4.3-11.0)
[2023-08-09 00:47] LABS: INR 1.47 (0.91-1.10); PARTIAL THROMBOPLASTIN TIME 35.7 SEC (24.3-34.3); PROTHROMBIN TIME 15.2 SECS (9.2-11.1)
[2023-08-09 00:50] LABS: CALCIUM, SERUM 6.4 mg/dL (8.5-10.1)
[2023-08-09 00:51] LABS: POTASSIUM 2.2 mmol/L (3.5-5.1)
[2023-08-09] MEDS ORDERED: POTASSIUM CHLORIDE 20 MEQ TAB.PRT.SR PO ONE (01:04)
[2023-08-09] MEDS ORDERED: POTASSIUM CL. PREMIX PERIPHER. 100 ML ONE ×2 (01:05→03:04)
[2023-08-09] MEDS: POTASSIUM CHLORIDE 10 MEQ/50 ML PREMIXED IVPB FOR PERIPHERAL LINE IV ONE (01:20)
[2023-08-09] MEDS: POTASSIUM CHLORIDE 20 MEQ TAB.PRT.SR PO ONE ×3 (01:28→09:36)
[2023-08-09 01:59] LABS: APPEARANCE,URINE CLEAR (CLEAR); BILIRUBIN,URINE 2+ (NEGATIVE); BLOOD, URINE 2+ Ery/uL (NEGATIVE); COLOR,URINE DARK YELLOW (YELLOW); KETONES,URINE 1+ mg/dL (NEGATIVE); LEUKOCYTE ESTERASE ,URINE NEGATIVE (NEGATIVE); NITRITE, URINE NEGATIVE (NEGATIVE); PROTEIN,URINE 2+ mg/dl (NEGATIVE); UGLUCOSE NEGATIVE (NEGATIVE); UROBILINOGEN,URINE 0.2 EU/dL (0.2)
[2023-08-09 02:11] LABS: ADD URINE CULTURE NO; BACTERIA,URINE Rare /HPF (None Seen); SQUAMOUS EPITHELIAL CELL,UR Rare /HPF (None Seen); WBC,URINE 0-2 /HPF (0-3)
[2023-08-09 02:42] LABS: ANISOCYTOSIS 1+; BASOPHILS % (MANUAL) 0 % (0.0-2.0); EOSINOPHILS % (MANUAL) 0 % (0-4); LYMPHOCYTES % (MANUAL) 5 % (16-48); MONOCYTES % (MANUAL) 6 % (0-11.0); NEUTROPHILS % (MANUAL) 89 (42-76); PLATELET ESTIMATE DECREASED
[2023-08-09 02:43] LABS: OVALOCYTES 1+
[2023-08-09] MEDS ORDERED: Z GUARD REMEDY 4 OZ OINT TP PRN (03:30)
[2023-08-09] MEDS ORDERED: ZOLPIDEM TARTRATE 5 MG TABLET PO PRN (03:30)
[2023-08-09] MEDS ORDERED: MAGNESIUM HYDROXIDE 30 ML UDC PO PRN (03:30)
[2023-08-09] MEDS ORDERED: MAG HYDROX/AL HYDROX/SIMETH 30 ML UDC PO PRN (03:30)
[2023-08-09] MEDS ORDERED: CEFTRIAXONE 1GM BAG (ER ONLY) 50 ML IV ONE (03:46)
[2023-08-09] MEDS: CEFTRIAXONE 1GM BAG (ER ONLY) 1 GM/50 ML PIGGYBACK IV ONE (03:50)
[2023-08-09] MEDS ORDERED: AZITHROMYCIN 500 MG VIAL ONE (04:07)
[2023-08-09 04:15] LABS: BASOPHILS # (AUTO) 0.1 K/uL (0.0-0.2); BASOPHILS % (AUTO) 0.4 % (0.0-2.0); EOSINOPHILS % (AUTO) 0.2 % (0.0-6.0); HEMATOCRIT 34 % (33-45); HEMOGLOBIN 10.4 g/dL (11.5-14.8); LYMPHOCYTES # (AUTO) 0.2 K/uL (0.8-4.8); LYMPHOCYTES % (AUTO) 1.4 % (20.0-44.0); MEAN CORPUSCULAR HEMOGLOBIN 29 PG (26.0-33.0); MEAN CORPUSCULAR HGB CONC 31 g/dl (31.0-36.0); MEAN CORPUSCULAR VOLUME 95 fL (82-100); MONOCYTES # (AUTO) 0.6 K/uL (0.1-1.30); MONOCYTES % (AUTO) 4.3 % (2.0-12.0); NEUTROPHILS # (AUTO) 13.7 K/uL (1.8-8.9); NEUTROPHILS % (AUTO) 93.7 % (43.0-81.0); PLATELET COUNT (AUTO) 62 K/uL (150-450); RED BLOOD CELL COUNT(AUTO) 3.55 MIL/uL (4.0-5.2); RED CELL DISTRIBUTION WIDTH 21.5 % (11.5-15.0); WHITE BLOOD COUNT (AUTO) 14.6 K/uL (4.3-11.0)
[2023-08-09] MEDS: AZITHROMYCIN 500 MG in IV D5W 250 ML IV ONE (04:30)
[2023-08-09 05:26] LABS: CALCIUM, SERUM 7.9 mg/dL (8.5-10.1); CREATININE 1.1 mg/dL (0.6-1.3); POTASSIUM 3.4 mmol/L (3.5-5.1)
[2023-08-09] MEDS ORDERED: METRONIDAZOLE 500MG/ NS 100ML 100 ML IV ONE (05:26)
[2023-08-09] MEDS: METRONIDAZOLE 500MG/ NS 100ML 500 MG in PREMIX 1 EA IV ONE (05:44)
[2023-08-09] MEDS ORDERED: ONDA4TAB11 PO (08:00)
[2023-08-09] MEDS ORDERED: OXYC1TAB8 PO (08:00)
[2023-08-09 08:15] VITALS: BP 95/68; TEMP 97.5; O2SAT 98
[2023-08-09 10:28] LABS: ANISOCYTOSIS 1+; PLATELET ESTIMATE DECREASED
[2023-08-09] MEDS: CEFTRIAXONE 1 G in IV D5W 50 ML IV SCH (11:01)
[2023-08-09 12:00] VITALS: BP 95/68; TEMP 97.7; O2SAT 98
[2023-08-09] MEDS: METRONIDAZOLE 500MG/ NS 100ML 500 MG in PREMIX 1 EA IV SCH (13:22)
[2023-08-09] MEDS: ACETAMINOPHEN 325 MG TABLET PO PRN (15:11)
[2023-08-09 16:12] VITALS: BP 96/64; TEMP 97.8; O2SAT 96
[2023-08-09 20:00] VITALS: BP 100/69; TEMP 97.9; O2SAT 97
[2023-08-10] VITALS: BP 106/81; TEMP 97.5; O2SAT 95
[2023-08-10 05:11] VITALS: BP 105/79; TEMP 97.7; O2SAT 96
[2023-08-10] MEDS: ZINC OXIDE 30 GM TUBE TP PRN (05:17)
[2023-08-10 06:59] LABS: BASOPHILS % (AUTO) 0.1 % (0.0-2.0); EOSINOPHILS # (AUTO) 0.1 K/uL (0.0-0.7); EOSINOPHILS % (AUTO) 0.7 % (0.0-6.0); HEMATOCRIT 34 % (33-45); HEMOGLOBIN 10.4 g/dL (11.5-14.8); LYMPHOCYTES # (AUTO) 0.3 K/uL (0.8-4.8); LYMPHOCYTES % (AUTO) 2.1 % (20.0-44.0); MEAN CORPUSCULAR HEMOGLOBIN 29 PG (26.0-33.0); MEAN CORPUSCULAR HGB CONC 31 g/dl (31.0-36.0); MEAN CORPUSCULAR VOLUME 93 fL (82-100); MONOCYTES # (AUTO) 0.7 K/uL (0.1-1.30); MONOCYTES % (AUTO) 4.5 % (2.0-12.0); NEUTROPHILS # (AUTO) 13.4 K/uL (1.8-8.9); NEUTROPHILS % (AUTO) 92.6 % (43.0-81.0); PLATELET COUNT (AUTO) 85 K/uL (150-450); RED BLOOD CELL COUNT(AUTO) 3.62 MIL/uL (4.0-5.2); RED CELL DISTRIBUTION WIDTH 21.2 % (11.5-15.0); WHITE BLOOD COUNT (AUTO) 14.5 K/uL (4.3-11.0)
[2023-08-10 07:38] LABS: CALCIUM, SERUM 8.7 mg/dL (8.5-10.1); CARBON DIOXIDE 22 mmol/L (21-32); CHLORIDE 109 mmol/L (98-107); CREATININE 1.2 mg/dL (0.6-1.3); GLUCOSE 164 mg/dL (74-106); MAGNESIUM 2.1 mg/dL (1.8-2.4); PHOSPHORUS 1.7 mg/dL (2.5-4.9); POTASSIUM 3.3 mmol/L (3.5-5.1); SODIUM SERUM 139 mmol/L (136-145); UREA NITROGEN, BLOOD 33 mg/dL (7-18)
[2023-08-10 08:00] VITALS: BP 102/84; TEMP 97.9; O2SAT 98
[2023-08-10 08:20] LABS: BASOPHILS % (MANUAL) 0 % (0.0-2.0); EOSINOPHILS % (MANUAL) 0 % (0-4); LYMPHOCYTES % (MANUAL) 3 % (16-48); MONOCYTES % (MANUAL) 8 % (0-11.0); NEUTROPHILS % (MANUAL) 89 (42-76)
[2023-08-10 08:21] LABS: BASOPHILS % (MANUAL) 0 % (0.0-2.0); EOSINOPHILS % (MANUAL) 0 % (0-4); LYMPHOCYTES % (MANUAL) 4 % (16-48); MONOCYTES % (MANUAL) 5 % (0-11.0); NEUTROPHILS % (MANUAL) 91 (42-76)
[2023-08-10 08:22] LABS: ANISOCYTOSIS 1+; PLATELET ESTIMATE DECREASED
[2023-08-10] MEDS: POTASSIUM CHLORIDE 20 MEQ TAB.PRT.SR PO SCH (09:43)
[2023-08-10] MEDS: DOXYCYCLINE HYCLATE (100 MG) 100 MG TABLET PO SCH (10:44)
[2023-08-10] MEDS: ENSURE ENLIVE 237 ML LIQUID (VANILLA) PO SCH (12:32)
[2023-08-10] MEDS ORDERED: IOHEXOL-300 100 ML VIAL IV ONE (14:52)
[2023-08-10] MEDS ORDERED: IV NS 0.9% 250 ML IV ONE (14:53)
[2023-08-10 16:00] VITALS: BP 111/79; TEMP 97.8; O2SAT 94
[2023-08-10] MEDS: K PHOS NEUTRAL 250 MG TABLET PO ONE (16:04)
[2023-08-10] MEDS: IV 1/2NS 1000 ML 1,000 ML IV PRN (16:50)
[2023-08-10] MEDS: VANCOMYCIN 750 MG in IV D5W 250 ML IV SCH (20:14)
[2023-08-10] MEDS: CEFEPIME 1 GM in IV D5W 50 ML IV SCH (21:13)
[2023-08-11 06:57] LABS: EOSINOPHILS # (AUTO) 0.1 K/uL (0.0-0.7); EOSINOPHILS % (AUTO) 0.8 % (0.0-6.0); HEMATOCRIT 33 % (33-45); HEMOGLOBIN 10.4 g/dL (11.5-14.8); LYMPHOCYTES # (AUTO) 0.1 K/uL (0.8-4.8); LYMPHOCYTES % (AUTO) 0.9 % (20.0-44.0); MEAN CORPUSCULAR HEMOGLOBIN 29 PG (26.0-33.0); MEAN CORPUSCULAR HGB CONC 31 g/dl (31.0-36.0); MEAN CORPUSCULAR VOLUME 93 fL (82-100); MONOCYTES # (AUTO) 0.6 K/uL (0.1-1.30); MONOCYTES % (AUTO) 3.9 % (2.0-12.0); NEUTROPHILS # (AUTO) 13.9 K/uL (1.8-8.9); NEUTROPHILS % (AUTO) 94.4 % (43.0-81.0); PLATELET COUNT (AUTO) 62 K/uL (150-450); RED BLOOD CELL COUNT(AUTO) 3.59 MIL/uL (4.0-5.2); RED CELL DISTRIBUTION WIDTH 21.6 % (11.5-15.0); WHITE BLOOD COUNT (AUTO) 14.7 K/uL (4.3-11.0)
[2023-08-11 07:29] LABS: CALCIUM, SERUM 8.4 mg/dL (8.5-10.1); CARBON DIOXIDE 21 mmol/L (21-32); CHLORIDE 106 mmol/L (98-107); CREATININE 1.2 mg/dL (0.6-1.3); GLUCOSE 149 mg/dL (74-106); PHOSPHORUS 1.8 mg/dL (2.5-4.9); SODIUM SERUM 137 mmol/L (136-145); UREA NITROGEN, BLOOD 32 mg/dL (7-18)
[2023-08-11 07:30] VITALS: BP 108/86; TEMP 98.2; O2SAT 97
[2023-08-11 07:37] LABS: C-REACTIVE PROTEIN 1.9 mg/dL (0.0-0.30)
[2023-08-11 09:59] LABS: IRON, SERUM 35 ug/dl (50-175); TOTAL IRON BINDING CAPACITY 96 ug/dl (250-450)
[2023-08-11] MEDS: ESCITALOPRAM OXALATE (10 MG) 10 MG TABLET PO SCH (10:46)
[2023-08-11] MEDS: POTASSIUM CHLORIDE 20 MEQ TAB.PRT.SR PO SCH (10:46)
[2023-08-11 10:54] LABS: FERRITIN 611 ng/mL (8-388); THYROID STIMULATING HORMONE 4.172 uIU/mL (0.358-3.74)
[2023-08-11 12:40] LABS: ANISOCYTOSIS 1+; BASOPHILS % (MANUAL) 0 % (0.0-2.0); EOSINOPHILS % (MANUAL) 0 % (0-4); LYMPHOCYTES % (MANUAL) 2 % (16-48); MONOCYTES % (MANUAL) 5 % (0-11.0); NEUTROPHILS % (MANUAL) 93 (42-76); PLATELET ESTIMATE DECREASED
[2023-08-11 16:00] VITALS: BP 105/84; TEMP 97.7; O2SAT 96
[2023-08-11] MEDS: K PHOS NEUTRAL 250 MG TABLET PO ONE (17:18)
[2023-08-11 17:56] LABS: RHEUMATOID FACTOR SCREEN NEGATIVE (NEGATIVE)
[2023-08-11 20:00] VITALS: BP_SYST 106; BP_SYST 96; BP_DIAS 69; BP_DIAS 77; TEMP 97.8; O2SAT 96
[2023-08-12] VITALS: BP 96/77; TEMP 97.8; O2SAT 96
[2023-08-12 04:00] VITALS: BP 99/69; TEMP 97.8; O2SAT 95
[2023-08-12 06:59] LABS: CALCIUM, SERUM 8.1 mg/dL (8.5-10.1); CARBON DIOXIDE 19 mmol/L (21-32); CHLORIDE 105 mmol/L (98-107); CREATININE 1.1 mg/dL (0.6-1.3); GLUCOSE 145 mg/dL (74-106); POTASSIUM 3.2 mmol/L (3.5-5.1); SODIUM SERUM 133 mmol/L (136-145); UREA NITROGEN, BLOOD 30 mg/dL (7-18)
[2023-08-12 07:30] VITALS: BP 95/74; TEMP 97.7; O2SAT 94
[2023-08-12 07:37] LABS: BASOPHILS % (AUTO) 0.2 % (0.0-2.0); EOSINOPHILS # (AUTO) 0.1 K/uL (0.0-0.7); EOSINOPHILS % (AUTO) 0.6 % (0.0-6.0); HEMATOCRIT 33 % (33-45); HEMOGLOBIN 10.2 g/dL (11.5-14.8); LYMPHOCYTES # (AUTO) 0.2 K/uL (0.8-4.8); LYMPHOCYTES % (AUTO) 1.2 % (20.0-44.0); MEAN CORPUSCULAR HEMOGLOBIN 29 PG (26.0-33.0); MEAN CORPUSCULAR HGB CONC 31 g/dl (31.0-36.0); MEAN CORPUSCULAR VOLUME 93 fL (82-100); MONOCYTES # (AUTO) 0.9 K/uL (0.1-1.30); MONOCYTES % (AUTO) 4.8 % (2.0-12.0); NEUTROPHILS # (AUTO) 16.8 K/uL (1.8-8.9); NEUTROPHILS % (AUTO) 93.2 % (43.0-81.0); RED BLOOD CELL COUNT(AUTO) 3.56 MIL/uL (4.0-5.2); RED CELL DISTRIBUTION WIDTH 22.1 % (11.5-15.0); WHITE BLOOD COUNT (AUTO) 18.1 K/uL (4.3-11.0)
[2023-08-12 07:48] LABS: PLATELET COUNT (AUTO) 49 K/uL (150-450)
[2023-08-12 08:09] LABS: AFP, TUMOR MARKER <1.8 ng/mL (0.0-9.2)
[2023-08-12] MEDS: POTASSIUM CHLORIDE 10 MEQ TABLET.SA PO ONE (09:13)
[2023-08-12] MEDS: POTASSIUM CL IV SCH (09:50)
[2023-08-12] MEDS: PERIPHER IV SCH (09:50)
[2023-08-12] MEDS: NS 0.9% IV SCH (09:50)
[2023-08-12 10:07] LABS: CARBOHYDRATE AG 19-9 71310 U/mL (0-35)
[2023-08-12 13:10] LABS: ANISOCYTOSIS 1+; BASOPHILS % (MANUAL) 0 % (0.0-2.0); EOSINOPHILS % (MANUAL) 0 % (0-4); LYMPHOCYTES % (MANUAL) 2 % (16-48); MONOCYTES % (MANUAL) 7 % (0-11.0); NEUTROPHILS % (MANUAL) 91 (42-76); PLATELET ESTIMATE DECREASED
[2023-08-12 14:07] LABS: FREE KAPPA LT CHAINS SERUM 39.7 mg/L (3.3-19.4); FREE LAMBDA LT CHAIN SERUM 34.7 mg/L (5.7-26.3); KAPPA/LAMBDA RATIO SERUM 1.14 (0.26-1.65)
[2023-08-12 15:09] LABS: HEPATITIS B SURFACE AB Non Reactive (.); IMMUNOGLOBULIN A, SERUM 241 mg/dL (64-422); IMMUNOGLOBULIN G, SERUM 711 mg/dL (586-1602); IMMUNOGLOBULIN M, SERUM 66 mg/dL (26-217)
[2023-08-12 16:00] VITALS: BP 103/78; TEMP 97.9; O2SAT 95
[2023-08-12] MEDS: NEUTRA PHOS 1 POWD.PACKET PO ONE (16:27)
[2023-08-12 20:00] VITALS: BP 98/73; TEMP 98.8; O2SAT 96
[2023-08-12 20:06] LABS: *ANA ANTI-CENTROMERE B AB <0.2 AI (0.0-0.9); *ANA ANTI-DNA(DS) AB, QN <1 IU/mL (0-9); *ANA ANTI-JO-1 <0.2 AI (0.0-0.9); *ANA ANTICHROMATIN ANTIBODY <0.2 AI (0.0-0.9); *ANA RNP ANTIBODIES <0.2 AI (0.0-0.9); *ANA SJOGREN'S ANTI-SS-A <0.2 AI (0.0-0.9); *ANA SJOGREN'S ANTI-SS-B <0.2 AI (0.0-0.9); *ANAANTI-SCLERODERMA-70 AB <0.2 AI (0.0-0.9); *ANASMITH AB <0.2 AI (0.0-0.9)
[2023-08-12] MEDS: METRONIDAZOLE 500 MG TABLET PO SCH (20:40)
[2023-08-13] VITALS: BP_SYST 140; BP_DIAS 101; BP_DIAS 110; TEMP 98.4; O2SAT 97
[2023-08-13 01:06] LABS: FOLIC ACID 9.1 ng/mL (>3.0)
[2023-08-13] MEDS: ONDANSETRON HCL/PF 4 MG/2 ML VIAL IVP PRN (03:59)
[2023-08-13 07:49] LABS: CALCIUM, SERUM 8.1 mg/dL (8.5-10.1); CREATININE 1.1 mg/dL (0.6-1.3); PHOSPHORUS 2.7 mg/dL (2.5-4.9); POTASSIUM 3.8 mmol/L (3.5-5.1)
[2023-08-13 08:00] VITALS: BP 94/66; TEMP 97.4; O2SAT 96
[2023-08-13 11:23] LABS: BASOPHILS % (AUTO) 0.1 % (0.0-2.0); EOSINOPHILS % (AUTO) 0.1 % (0.0-6.0); HEMATOCRIT 30 % (33-45); HEMOGLOBIN 9.2 g/dL (11.5-14.8); LYMPHOCYTES # (AUTO) 0.1 K/uL (0.8-4.8); LYMPHOCYTES % (AUTO) 0.6 % (20.0-44.0); MEAN CORPUSCULAR HEMOGLOBIN 29 PG (26.0-33.0); MEAN CORPUSCULAR HGB CONC 31 g/dl (31.0-36.0); MEAN CORPUSCULAR VOLUME 94 fL (82-100); MONOCYTES # (AUTO) 0.9 K/uL (0.1-1.30); MONOCYTES % (AUTO) 4.1 % (2.0-12.0); NEUTROPHILS # (AUTO) 21.2 K/uL (1.8-8.9); NEUTROPHILS % (AUTO) 95.1 % (43.0-81.0); PLATELET COUNT (AUTO) 56 K/uL (150-450); RED BLOOD CELL COUNT(AUTO) 3.18 MIL/uL (4.0-5.2); RED CELL DISTRIBUTION WIDTH 22.5 % (11.5-15.0); WHITE BLOOD COUNT (AUTO) 22.3 K/uL (4.3-11.0)
[2023-08-13 12:00] VITALS: BP 99/80; TEMP 97.7; O2SAT 95
[2023-08-13 13:49] LABS: ANISOCYTOSIS 1+; EOSINOPHILS % (MANUAL) 0 % (0-4); LYMPHOCYTES % (MANUAL) 3 % (16-48); MONOCYTES % (MANUAL) 8 % (0-11.0); NEUTROPHILS % (MANUAL) 89 (42-76); PLATELET ESTIMATE DECREASED
[2023-08-13 13:50] LABS: OVALOCYTES 1+
[2023-08-13 15:10] LABS: *SPE ALBUMIN 2.2 g/dL (2.9-4.4); *SPE ALPHA-1-GLOBULIN 0.4 g/dL (0.0-0.4); *SPE ALPHA-2-GLOBULIN 0.5 g/dL (0.4-1.0); *SPE BETA GLOBULIN 0.6 g/dL (0.7-1.3); *SPE GLOBULIN, TOTAL 2.2 g/dL (2.2-3.9); *SPE M-SPIKE Not Observed g/dL (Not Observed); *SPE PROTEIN TOTAL 4.4 g/dL (6.0-8.5); *SPEGAMMA GLOBULIN 0.7 g/dL (0.4-1.8)
[2023-08-13 16:00] VITALS: BP 90/73; TEMP 97.3; O2SAT 95
[2023-08-13 20:00] VITALS: BP 89/65; TEMP 97.4; O2SAT 95
[2023-08-14 00:13] VITALS: BP 90/69; TEMP 98.2; O2SAT 94
[2023-08-14 04:00] VITALS: BP 96/68; TEMP 97.7; O2SAT 95
[2023-08-14 06:56] LABS: BASOPHILS % (AUTO) 0.1 % (0.0-2.0); EOSINOPHILS % (AUTO) 0.1 % (0.0-6.0); HEMATOCRIT 23 % (33-45); HEMOGLOBIN 7.3 g/dL (11.5-14.8); LYMPHOCYTES # (AUTO) 0.2 K/uL (0.8-4.8); LYMPHOCYTES % (AUTO) 0.9 % (20.0-44.0); MEAN CORPUSCULAR HEMOGLOBIN 29 PG (26.0-33.0); MEAN CORPUSCULAR HGB CONC 31 g/dl (31.0-36.0); MEAN CORPUSCULAR VOLUME 94 fL (82-100); MONOCYTES # (AUTO) 0.9 K/uL (0.1-1.30); MONOCYTES % (AUTO) 3.9 % (2.0-12.0); NEUTROPHILS # (AUTO) 22.5 K/uL (1.8-8.9); PLATELET COUNT (AUTO) 64 K/uL (150-450); RED CELL DISTRIBUTION WIDTH 21.6 % (11.5-15.0); WHITE BLOOD COUNT (AUTO) 23.7 K/uL (4.3-11.0)
[2023-08-14 07:07] LABS: CALCIUM, SERUM 8.2 mg/dL (8.5-10.1); CREATININE 1.2 mg/dL (0.6-1.3); MAGNESIUM 1.8 mg/dL (1.8-2.4); PHOSPHORUS 2.2 mg/dL (2.5-4.9); POTASSIUM 4.4 mmol/L (3.5-5.1)
[2023-08-14 08:00] VITALS: BP 95/67; TEMP 97.9; O2SAT 94
[2023-08-14 10:24] LABS: LYMPHOCYTES % (MANUAL) 1 % (16-48); NEUTROPHILS % (MANUAL) 99 (42-76); PLATELET ESTIMATE DECREASED
[2023-08-14 10:25] LABS: ANISOCYTOSIS 1+; HYPOCHROMASIA 1+; TEAR DROP CELLS 1+
[2023-08-14] MEDS: K PHOS NEUTRAL 250 MG TABLET PO ONE (15:30)
[2023-08-14 16:00] VITALS: BP 89/62; TEMP 98; O2SAT 94
[2023-08-14] MEDS: Potassium Chloride 20 MEQ in IV NS 0.9% 1,000 ML IV SCH (19:55)
[2023-08-14 20:00] VITALS: BP 99/67; TEMP 97.7; O2SAT 95
[2023-08-15] VITALS: BP 90/66; TEMP 97.6; TEMP 97.7; O2SAT 97
[2023-08-15 04:00] VITALS: BP 93/74; TEMP 97.8; O2SAT 94
[2023-08-15 05:00] VITALS: BP 93/74; TEMP 97.8; O2SAT 94
[2023-08-15 07:14] LABS: BASOPHILS # (AUTO) 0.1 K/uL (0.0-0.2); BASOPHILS % (AUTO) 0.2 % (0.0-2.0); HEMATOCRIT 24 % (33-45); HEMOGLOBIN 7.1 g/dL (11.5-14.8); LYMPHOCYTES # (AUTO) 0.3 K/uL (0.8-4.8); LYMPHOCYTES % (AUTO) 0.8 % (20.0-44.0); MEAN CORPUSCULAR HEMOGLOBIN 29 PG (26.0-33.0); MEAN CORPUSCULAR HGB CONC 30 g/dl (31.0-36.0); MEAN CORPUSCULAR VOLUME 97 fL (82-100); MONOCYTES % (AUTO) 3.2 % (2.0-12.0); NEUTROPHILS % (AUTO) 95.8 % (43.0-81.0); PLATELET COUNT (AUTO) 91 K/uL (150-450); RED BLOOD CELL COUNT(AUTO) 2.42 MIL/uL (4.0-5.2); RED CELL DISTRIBUTION WIDTH 23.5 % (11.5-15.0)
[2023-08-15 07:45] LABS: WHITE BLOOD COUNT (AUTO) 30.3 K/uL (4.3-11.0)
[2023-08-15 08:00] VITALS: BP 96/70; TEMP 97.7; O2SAT 96
[2023-08-15 09:03] LABS: CREATININE 1.3 mg/dL (0.6-1.3); POTASSIUM 4.6 mmol/L (3.5-5.1)
[2023-08-15 09:13] LABS: FERRITIN 542 ng/mL (8-388)
[2023-08-15 10:00] LABS: IRON, SERUM 51 ug/dl (50-175); TOTAL IRON BINDING CAPACITY 120 ug/dl (250-450)
[2023-08-15 10:47] LABS: BAND % (MANUAL) 2 % (0.0-5.0); MONOCYTES % (MANUAL) 1 % (0-11.0); NEUTROPHILS % (MANUAL) 97 (42-76)
[2023-08-15 10:48] LABS: ANISOCYTOSIS 1+; PLATELET ESTIMATE DECREASED
[2023-08-15 10:49] LABS: OVALOCYTES 1+
[2023-08-15] MEDS: MEGESTROL ACETATE 40 MG TABLET PO SCH (11:30)
[2023-08-15] MEDS: METRONIDAZOLE 500MG/ NS 100ML 500 MG in PREMIX 1 EA IV SCH (14:04)
[2023-08-15 16:00] VITALS: BP 87/66; TEMP 97.9; O2SAT 94
[2023-08-15 20:00] VITALS: BP 93/56; TEMP 97.4; O2SAT 95
[2023-08-16] VITALS (10 sets, daily range): BP systolic 75–95; BP diastolic 52–74; TEMP 97.5–98.2; O2SAT 93–96
[2023-08-16] MEDS: IV NS 0.9% 500 ML IV ONE (02:12)
[2023-08-16 06:42] LABS: INR 1.35 (0.91-1.10)
[2023-08-16 06:47] LABS: ALBUMIN 1.6 g/dL (3.4-5.0); TOTAL PROTEIN,PERITONEAL FLUID 4.37
[2023-08-16 06:57] LABS: BASOPHILS # (AUTO) 0.1 K/uL (0.0-0.2); BASOPHILS % (AUTO) 0.2 % (0.0-2.0); LYMPHOCYTES # (AUTO) 0.3 K/uL (0.8-4.8); LYMPHOCYTES % (AUTO) 0.8 % (20.0-44.0); MEAN CORPUSCULAR HEMOGLOBIN 29 PG (26.0-33.0); MEAN CORPUSCULAR HGB CONC 31 g/dl (31.0-36.0); MEAN CORPUSCULAR VOLUME 96 fL (82-100); MONOCYTES # (AUTO) 1.1 K/uL (0.1-1.30); MONOCYTES % (AUTO) 3.3 % (2.0-12.0); NEUTROPHILS # (AUTO) 31.6 K/uL (1.8-8.9); NEUTROPHILS % (AUTO) 95.7 % (43.0-81.0); PLATELET COUNT (AUTO) 80 K/uL (150-450); RED CELL DISTRIBUTION WIDTH 23.5 % (11.5-15.0)
[2023-08-16 06:59] LABS: RED BLOOD CELL COUNT(AUTO) 1.98 MIL/uL (4.0-5.2)
[2023-08-16 07:00] LABS: CALCIUM, SERUM 8.8 mg/dL (8.5-10.1); CREATININE 1.3 mg/dL (0.6-1.3); MAGNESIUM 1.9 mg/dL (1.8-2.4); PHOSPHORUS 2.6 mg/dL (2.5-4.9)
[2023-08-16 07:17] LABS: HEMATOCRIT 19 % (33-45); HEMOGLOBIN 5.8 g/dL (11.5-14.8); WHITE BLOOD COUNT (AUTO) 33.1 K/uL (4.3-11.0)
[2023-08-16 10:06] LABS: BASOPHILS % (MANUAL) 0 % (0.0-2.0); EOSINOPHILS % (MANUAL) 0 % (0-4); LYMPHOCYTES % (MANUAL) 2 % (16-48); MONOCYTES % (MANUAL) 4 % (0-11.0); NEUTROPHILS % (MANUAL) 94 (42-76)
[2023-08-16 10:07] LABS: ANISOCYTOSIS 1+; HYPOCHROMASIA 1+; OVALOCYTES 1+; PLATELET ESTIMATE DECREASED
[2023-08-16] MEDS: IV NS 0.9% 1,000 ML IV PRN (10:13)
[2023-08-16 18:25] LABS: OCCULT BLOOD STOOL POSITIVE (NEGATIVE)
[2023-08-16] MEDS: VANCOMYCIN HCL 125 MG/2.5 ML ORAL.SUSP PO SCH (18:31)
[2023-08-16] MEDS: CEFEPIME 2 GM in IV D5W 100 ML IV SCH (21:35)
[2023-08-17] VITALS: BP 95/68; TEMP 97.7; O2SAT 95
[2023-08-17 04:00] VITALS: BP 95/67; TEMP 97.7; O2SAT 96
[2023-08-17 06:48] LABS: BASOPHILS % (AUTO) 0.1 % (0.0-2.0); HEMATOCRIT 23 % (33-45); HEMOGLOBIN 7.3 g/dL (11.5-14.8); LYMPHOCYTES # (AUTO) 0.2 K/uL (0.8-4.8); LYMPHOCYTES % (AUTO) 0.5 % (20.0-44.0); MEAN CORPUSCULAR HEMOGLOBIN 30 PG (26.0-33.0); MEAN CORPUSCULAR HGB CONC 31 g/dl (31.0-36.0); MEAN CORPUSCULAR VOLUME 96 fL (82-100); MONOCYTES # (AUTO) 1.1 K/uL (0.1-1.30); MONOCYTES % (AUTO) 3.6 % (2.0-12.0); NEUTROPHILS # (AUTO) 28.8 K/uL (1.8-8.9); NEUTROPHILS % (AUTO) 95.8 % (43.0-81.0); PLATELET COUNT (AUTO) 52 K/uL (150-450); RED BLOOD CELL COUNT(AUTO) 2.43 MIL/uL (4.0-5.2); RED CELL DISTRIBUTION WIDTH 19.2 % (11.5-15.0)
[2023-08-17 06:51] LABS: CALCIUM, SERUM 7.4 mg/dL (8.5-10.1); CARBON DIOXIDE 14 mmol/L (21-32); CHLORIDE 112 mmol/L (98-107); CREATININE 1.5 mg/dL (0.6-1.3); GLUCOSE 203 mg/dL (74-106); POTASSIUM 3.7 mmol/L (3.5-5.1); SODIUM SERUM 139 mmol/L (136-145); UREA NITROGEN, BLOOD 57 mg/dL (7-18)
[2023-08-17 07:30] VITALS: BP 92/64; TEMP 97.5; O2SAT 97
[2023-08-17 11:11] LABS: ANISOCYTOSIS 1+; BAND % (MANUAL) 2 % (0.0-5.0); BASOPHILS % (MANUAL) 0 % (0.0-2.0); EOSINOPHILS % (MANUAL) 0 % (0-4); LYMPHOCYTES % (MANUAL) 2 % (16-48); MONOCYTES % (MANUAL) 4 % (0-11.0); NEUTROPHILS % (MANUAL) 92 (42-76); PLATELET ESTIMATE DECREASED
[2023-08-17 16:00] VITALS: BP 90/69; TEMP 98.2; O2SAT 96
[2023-08-17 19:52] VITALS: BP 100/71; TEMP 97.7; O2SAT 94
[2023-08-17 21:00] VITALS: BP 100/71; TEMP 97.7; O2SAT 94
[2023-08-18 07:00] VITALS: BP_SYST 108; BP_SYST 91; BP_DIAS 65; BP_DIAS 70; TEMP 94.3; TEMP 97.3; O2SAT 95; O2SAT 96
[2023-08-18 07:16] LABS: EOSINOPHILS # (AUTO) 0.1 K/uL (0.0-0.7); EOSINOPHILS % (AUTO) 0.2 % (0.0-6.0); HEMATOCRIT 25 % (33-45); HEMOGLOBIN 7.8 g/dL (11.5-14.8); LYMPHOCYTES # (AUTO) 0.1 K/uL (0.8-4.8); LYMPHOCYTES % (AUTO) 0.4 % (20.0-44.0); MEAN CORPUSCULAR HEMOGLOBIN 30 PG (26.0-33.0); MEAN CORPUSCULAR HGB CONC 31 g/dl (31.0-36.0); MEAN CORPUSCULAR VOLUME 97 fL (82-100); MONOCYTES # (AUTO) 0.8 K/uL (0.1-1.30); MONOCYTES % (AUTO) 2.5 % (2.0-12.0); NEUTROPHILS # (AUTO) 32.1 K/uL (1.8-8.9); NEUTROPHILS % (AUTO) 96.9 % (43.0-81.0); PLATELET COUNT (AUTO) 53 K/uL (150-450); RED CELL DISTRIBUTION WIDTH 21.1 % (11.5-15.0)
[2023-08-18 07:22] LABS: WHITE BLOOD COUNT (AUTO) 33.1 K/uL (4.3-11.0)
[2023-08-18 07:44] LABS: CARBON DIOXIDE 13 mmol/L (21-32); CHLORIDE 111 mmol/L (98-107); CREATININE 1.7 mg/dL (0.6-1.3); GLUCOSE 155 mg/dL (74-106); SODIUM SERUM 138 mmol/L (136-145); UREA NITROGEN, BLOOD 69 mg/dL (7-18)
[2023-08-18 10:27] LABS: ANISOCYTOSIS 1+; BASOPHILS % (MANUAL) 0 % (0.0-2.0); EOSINOPHILS % (MANUAL) 0 % (0-4); HYPOCHROMASIA 1+; LYMPHOCYTES % (MANUAL) 2 % (16-48); MONOCYTES % (MANUAL) 4 % (0-11.0); NEUTROPHILS % (MANUAL) 94 (42-76); OVALOCYTES 1+; PLATELET ESTIMATE DECREASED; TEAR DROP CELLS 1+
[2023-08-18 16:00] VITALS: BP 108/65; TEMP 97.7; O2SAT 94
== END 2023-08-18 18:17 | disposition hospice, home (50) | DRG 435 ==
LOC: ER 21:59 → TELE 08-09 03:51 → MED 08-17 10:09
PROVIDERS: ADMIT Nurse Practitioner Acute Care; ATTEND Nurse Practitioner Acute Care
PROC: 30233N1 Transfusion of Nonautologous Red Blood Cells into Peripheral Vein, Percutaneous Approach (ICD-10-PCS; principal; 2023-08-16)
PROC: 0W9G3ZX Drainage of Peritoneal Cavity, Percutaneous Approach, Diagnostic (ICD-10-PCS; 2023-08-16)
DX: C25.9 Malignant neoplasm of pancreas, unspecified (principal); E43 Unspecified severe protein-calorie malnutrition; J15.69 Pneumonia due to other Gram-negative bacteria; K55.059 Acute (reversible) ischemia of intestine, part and extent unspecified; J15.9 Unspecified bacterial pneumonia; Z68.1 Body mass index [BMI] 19.9 or less, adult; J90 Pleural effusion, not elsewhere classified; J98.11 Atelectasis; K76.6 Portal hypertension; N13.1 Hydronephrosis with ureteral stricture, not elsewhere classified; R18.0 Malignant ascites; J21.9 Acute bronchiolitis, unspecified; F33.2 Major depressive disorder, recurrent severe without psychotic features; E87.1 Hypo-osmolality and hyponatremia; N17.9 Acute kidney failure, unspecified; R64 Cachexia; A04.72 Enterocolitis due to Clostridium difficile, not specified as recurrent; E86.0 Dehydration; E87.6 Hypokalemia; Z85.028 Personal history of other malignant neoplasm of stomach; Z92.21 Personal history of antineoplastic chemotherapy; Z66 Do not resuscitate; Z51.5 Encounter for palliative care; Z79.899 Other long term (current) drug therapy; K31.89 Other diseases of stomach and duodenum; N20.0 Calculus of kidney; K74.60 Unspecified cirrhosis of liver; F43.21 Adjustment disorder with depressed mood; I73.9 Peripheral vascular disease, unspecified; D64.9 Anemia, unspecified; D69.6 Thrombocytopenia, unspecified; L60.3 Nail dystrophy; Y04.8XXA Assault by other bodily force, initial encounter; Y92.009 Unspecified place in unspecified non-institutional (private) residence as the place of occurrence of the external cause; M54.9 Dorsalgia, unspecified; S31.000A Unspecified open wound of lower back and pelvis without penetration into retroperitoneum, initial encounter; M89.9 Disorder of bone, unspecified
CPT/HCPCS: 36415; 49083; 71045-TC; 71250-TC; 72131-TC; 80048-TC; 80202-TC; 81001; 82040-TC; 82105; 82272-TC; 82378; 82550-TC; 82607-TC; 82728-TC; 82784; 83540-TC; 83605-TC; 83735-TC; 84100-TC; 84155; 84165; 84439-TC; 84443-TC; 85025-TC; 85610-TC; 85730-TC; 86140-TC; 86225; 86235; 86301; 86334; 86431-TC; 86706; 86803; 86850-TC; 87040-TC; 87081-TC; 87340; 88108-TC; 88305-TC; 93970-TC; 97110-TC; 97112-TC; 97530-TC; 97535-TC; A4216; A4223; G0378; J0456; J0692; J0696; J2270; J2405; J3371; J3480; J3490; J7030; J7040; J7050; J7060; P9016; Q9967